=== PATIENT | female | born 1985 | race Caucasian/White ===

== ENCOUNTER 2017-07-12 15:26 | Emergency (ER) | payer OTHER ==
[~2017-07-12] VITALS: Ht 177.8 cm; Wt 78.9 kg
[2017-07-12] MEDS ORDERED: MORPHINE SULFATE INJ 10 MG/ML IV ONE (16:30)
[2017-07-12 20:28] VITALS: BP 122/70
== END 2017-07-12 16:55 | disposition home or self-care (01) ==
LOC: FSED 15:26
DX: R10.31 Right lower quadrant pain (principal); K57.32 Diverticulitis of large intestine without perforation or abscess without bleeding
CPT/HCPCS: 85025; 99282; J2270

== ENCOUNTER 2018-01-15 12:23 | Emergency (ER) | payer OTHER ==
[~2018-01-15] VITALS: Ht 177.8 cm; Wt 78.5 kg
[2018-01-15] MEDS ORDERED: SODIUM CHLORIDE 0.9% 1000ML 1,000 ML IV STA (12:56)
[2018-01-15] MEDS ORDERED: MORPHINE SULFATE INJ 4 MG/ML INJ IV STA (12:56)
[2018-01-15] MEDS ORDERED: ONDANSETRON HCL 4 MG ORAL DISINTEGRATING TAB PO ONE (13:00)
[2018-01-15 13:31] LABS: BASOPHILS # (AUTO) 0.1 (0.0-0.1); EOSINOPHILS # (AUTO) 0.1 (0.0-0.4); EOSINOPHILS % 0.8 % (0.0-6.0); HEMATOCRIT 45.2 % (34.2-44.1); HEMOGLOBIN 15.2 g/dL (12.0-16.0); LYMPHOCYTES # (AUTO) 4.1 (1.0-3.2); LYMPHOCYTES % 32.8 % (18.0-39.1); MEAN CORPUSCULAR HEMOGLOBIN 30.7 pg (28-32); MEAN CORPUSCULAR HGB CONC 33.6 g/dL (31-35); MEAN CORPUSCULAR VOLUME 91.3 fL (81-99); MONOCYTES # (AUTO) 1.2 (0.2-0.8); MONOCYTES % 9.2 % (4.4-11.3); NEUTROPHILS % 55.6 % (38.7-80.0); PLATELET COUNT 315 x10e3/uL (140-360); RED BLOOD COUNT 4.95 x10e6/uL (3.6-5.1); RED CELL DISTRIBUTION WIDTH 13.1 % (11.7-14.4)
[2018-01-15 13:34] LABS: PREGNANCY TEST, URINE NEGATIVE (NEGATIVE)
[2018-01-15 13:48] LABS: ALANINE AMINOTRANSFERASE 22 IU/L (0-55); ALBUMIN 4.2 g/dL (3.5-5.0); ALBUMIN/GLOBULIN RATIO 1.2 (0.8-2.0); ALKALINE PHOSPHATASE 82 IU/L (40-150); ANION GAP 13.4 mmol/L (8-16); BLOOD UREA NITROGEN 13 mg/dL (7-26); BUN/CREATININE RATIO 15 (6-25); CARBON DIOXIDE 29 mmol/L (22-29); CHLORIDE 102 mmol/L (98-107); CREATININE, SERUM 0.86 mg/dL (0.57-1.11); EST GLOMERULAR FILTRATION RATE > 60 ML/MIN (60-); GLUCOSE 80 mg/dL (74-118); POTASSIUM 3.4 mmol/L (3.5-5.1); SODIUM 141 mmol/L (136-145)
--- NOTE | 2018-01-15 14:34 | Diagnostic Imaging Report ---
PROCEDURE: CT ABDOMEN AND PELVIS WITHOUT CONTRAST TECHNIQUE: The abdomen and pelvis were scanned utilizing a multidetector helical scanner from the diaphragm to the lesser trochanter after the oral administration of water. No IV contrast was administered because of renal stone protocol. Coronal and sagittal multiplanar reformations were obtained. COMPARISON: None. INDICATIONS: KIDNEY STONES FINDINGS: ABSENCE OF INTRAVENOUS CONTRAST DECREASES SENSITIVITY FOR DETECTION OF FOCAL LESIONS AND VASCULAR PATHOLOGY. LOWER THORAX: Normal. HEPATOBILIARY: No focal hepatic lesion or intrahepatic biliary dilatation. The gallbladder is unremarkable. SPLEEN: No splenomegaly. PANCREAS: No focal masses or ductal dilatation. ADRENALS: No adrenal nodules. KIDNEYS/URETERS: Punctate nonobstructing left lower pole renal calculus (series 3 image 79). No additional renal, ureteral, or bladder calculi. No hydronephrosis. No perinephric inflammation. No gross solid or cystic renal mass lesion. PELVIC ORGANS/BLADDER: The urinary bladder is incompletely distended but otherwise unremarkable. The uterus is retroflexed and appears normal. No adnexal mass. PERITONEUM / RETROPERITONEUM: No ascites. No pneumoperitoneum. LYMPH NODES: No pelvic sidewall, retroperitoneal, or mesenteric lymphadenopathy. VESSELS: The limited evaluation without intravenous contrast. The abdominal aorta is non-aneurysmal. Retroaortic left renal vein. GI TRACT: The large bowel shows no evidence of distention or wall thickening. Gas and fecal material are noted throughout. The appendix is normal. There is no small bowel dilatation to suggest obstruction. BONES AND SOFT TISSUES: No focal soft tissue abnormalities. No osseous destructive lesions. Small bone island in the T12 vertebral body. Similar lesion in the left femoral head. IMPRESSION: Punctate nonobstructing left lower pole renal calculus. Dictated by: Tunde Wren M.D. on 01/15/2018 at 14:40 Electronically approved by: Tunde Wren M.D. on 01/15/2018 at 14:40
[2018-01-15 15:06] LABS: BILIRUBIN,URINE NEGATIVE (NEGATIVE); CLARITY,URINE CLEAR (CLEAR); COLOR,URINE YELLOW (YELLOW); KETONES,URINE NEGATIVE (NEGATIVE); LEUKOCYTE ESTERASE ,URINE NEGATIVE (NEGATIVE); NITRITE,URINE NEGATIVE (NEGATIVE); PROTEIN,URINE DIPSTICK NEGATIVE (NEGATIVE); URINE UROBILINOGEN 0.2 mg/dL (0.2 - 1)
[2018-01-15] MEDS ORDERED: CEFTRIAXONE SOD 1 GM VIAL IV NR (15:15)
[2018-01-15 15:17] LABS: BACTERIA,URINE MODERATE /HPF; EPITHELIAL CELLS,URINE MANY /LPF; MUCUS,URINE MODERATE (RARE)
== END 2018-01-15 16:58 | disposition home or self-care (01) ==
LOC: ER 12:23
DX: M54.9 Dorsalgia, unspecified (principal); M79.1 Myalgia; R11.0 Nausea; N18.9 Chronic kidney disease, unspecified; M32.9 Systemic lupus erythematosus, unspecified
CPT/HCPCS: 36415; 74176; 80053; 81001; 81025; 85025; 87086; 99284; J0696; J2270; J7030

== ENCOUNTER → 2018-04-23 | Outpatient (CLI) | payer OTHER ==
[~2018-04-23] MED LIST: IOPAMIDOL 370 MG/ML 200 ML INFUS..BTL INJ ONE; SODIUM CHLORIDE 0.9% 250ML 250 ML ONE
--- NOTE | 2018-04-23 15:08 | Diagnostic Imaging Report ---
EXAM: CT Abdomen and Pelvis WITHOUT and WITH contrast INDICATION: ^[id number] ^1400 ^GROSS HEMATURIA COMPARISON: None. TECHNIQUE: Abdomen and pelvis were scanned utilizing a multidetector helical scanner from the lung base to the pubic symphysis after administration of IV contrast. Coronal and sagittal reformations were obtained. Hematuria protocol was performed. Scan was performed pre- in supine position and nephrogenic/excretory phase with a 10 minute split bolus in prone position. IV CONTRAST: 150 mL of Isovue 370 ORAL CONTRAST: Water COMPLICATIONS: None RADIATION DOSE: Total DLP: 1172.4 mGy*cm Estimated effective dose: (DLP x 0.015 x size factor) mSv CTDIvol has been reviewed. It is below the limits set by the Radiation Protocol Committee (RPC). FINDINGS: LINES and TUBES: None. LOWER THORAX: Dependent atelectasis in the right middle lobe. Linear opacity in the right lower lobe, likely represents subsegmental atelectasis or scarring. HEPATOBILIARY: Normal hepatic size and contour. No focal hepatic lesions. No biliary ductal dilation. GALLBLADDER: No radio-opaque stones or sludge. No wall thickening. SPLEEN: No splenomegaly. PANCREAS: No focal masses or ductal dilatation. ADRENALS: No adrenal nodules KIDNEYS/URETERS: Kidneys: Normal appearance bilaterally. No hydronephrosis or perinephric stranding. Cyst: None. Mass: None. Stones: None. Upper collecting systems: No irregularities or filling defects. Ureters: Right proximal, right most distal, left proximal and left mid ureters are well opacified. No filling defects, strictures or extrinsic compressions. No hydroureter. No periureteral stranding. Bladder: No mass or filling defects. GI TRACT: No abnormal distention, wall thickening, or evidence of bowel obstruction. Appendix is normal. PELVIC ORGANS/BLADDER: No focal bladder lesions or wall thickening. Pelvic phleboliths. Uterus is unremarkable. No adnexal masses. LYMPH NODES: No lymphadenopathy. VESSELS: Unremarkable. PERITONEUM / RETROPERITONEUM: No free air or fluid. BONES: Unremarkable. SOFT TISSUES: Unremarkable. IMPRESSION: 1. No renal, ureteral or bladder calculi. No filling defects, strictures or extrinsic compressions in the opacified portions of the genitourinary tract. No bladder abnormalities. Signed by: Dr. Michael Anne M.D. on 04/23/2018 3:05 PM
== END ==
LOC: CT 12:45
PROVIDERS: ATTEND Urology
DX: R31.0 Gross hematuria (principal)
CPT/HCPCS: 74178; 81025; J7050; Q9967

== ENCOUNTER 2018-05-04 15:34 | Emergency (ER) | payer OTHER ==
[~2018-05-04] VITALS: Ht 177.8 cm; Wt 78.5 kg
--- OUTSIDE RECORDS SUMMARY | 2018-05-04 15:37 | XMS REPORT | Continuity of Care Document ---
Author Author [facility] Address Unknown Phone Unavailable Problems Problem Status Onset Date Classification Date Reported Comments Source CYNDEE positive Active Problem 02/01/2018 Heriberto Johnson Rheumatoid arthritis with positive rheumatoid factor Active Problem 02/01/2018 Heriberto Johnson Skin rash Active Problem 02/01/2018 Heirberto Johnson Medications Medication Details Route Status Patient Instructions Ordering Provider Order Date Source Hydroxychloroquine Sulfate 1 tablet with food or milk Orally Active 200 MG Orally bid Daryl 11/13/2017 Heriberto Johnson Hydrochlorothiazide 1 tablet in the morning Orally Active 25 MG Orally Once a day Daryl Heriberto Johnson Oxybutynin Chloride as directed Orally Active 15 MG Orally Daryl Heriberto Johnson Calcium 500 1 tablet Orally Active 500 MG Orally Once a day Daryl Heriberto Johnson Tamsulosin HCl 1 capsule Orally Active 0.4 MG Orally Once a day Daryl Heriberto Johnson Nortrel 1/35 (21) 1 tablet Orally Active 1-35 MG-MCG Orally Once a day Daryl Heriberto Johnson Potassium Citrate 1 tablet Orally Active 30 meq Orally twice a day Daryl Heriberto Johnson Tylenol/Codeine #3 1 tablet as needed Orally Active 300-30 MG Orally every 6 hrs Daryl Heriberto Johnson Phenazopyridine HCl 1 tablet after meals Orally Active 200 MG Orally Three times a day Daryl Heriberto Johnson Allergies, Adverse Reactions, Alerts Substance Category Reaction Severity Reaction type Status Date Reported Comments Source N.K.D.A. Adverse Reaction Info Not Available Adverse Reaction Active 11/13/2017 Heriberto Johnson Immunizations Immunization Date Given Site Status Last Updated Comments Source Results Order Name Results Value Reference Range Date Interpretation Comments Source Vital Signs Vital Sign Value Date Comments Source Weight 172.7 11/13/2017 Heriberto Johnson Height 69.5 11/13/2017 Heriberto Johnson Temperature Oral (F) 98.8 F 11/13/2017 Heriberto Johnson Heart Rate 80 11/13/2017 Heriberto Johnson Diastolic (mm Hg) 70 11/13/2017 Heriberto Johnson Systolic (mm Hg) 114 11/13/2017 Heriberto Johnson Weight 173.5 10/30/2017 Heriberto Johnson Height 69.5 10/30/2017 Heriberto Johnson Temperature Oral (F) 98.9 F 10/30/2017 Heriberto Johnson Heart Rate 74 10/30/2017 Heriberto Johnson Diastolic (mm Hg) 76 10/30/2017 Heriberto Johnson Systolic (mm Hg) 122 10/30/2017 Heriberto Johnson Encounters Location Location Details Encounter Type Encounter Number Reason For Visit Attending Provider ADM Date DC Date Status Source Procedures Procedure Code Date Perfomer Comments Source
--- OUTSIDE RECORDS SUMMARY | 2018-05-04 15:37 | XMS REPORT ---
Author Author [facility] Address Unknown Phone Unavailable Care Team Providers Care Maintenance Supervisor Name Role Phone GATITO ROTHMAN Unavailable Unavailable Isidro FUENTES Unavailable Unavailable Payers Payer Name Policy Type Policy Number Effective Date Expiration Date Problems This patient has no known problems. Allergies, Adverse Reactions, Alerts Allergy Name Allergy Type Status Severity Reaction(s) Onset Date Inactive Date Treating Clinician Comments No Known Allergies DA Active U 2018-04-29 00:00:00 No Known Allergies DA Active U 2017-10-13 00:00:00 Medications This patient has no known medications. Results Test Description Test Time Test Comments Text Results Atomic Results Result Comments CT ABDOMEN/PELVIS WOW 2018-04-23 14:58:00 [place] [address] Patient Name: ASUNCION ROSAS MR #: [id number] : 1985 Age/Sex: 32/F Req #: [id number] Adm Physician: Ordered by: GATITO ROTHMAN MD Report #: [id number] Location: CT Room/Bed: Procedure: [id number] CT/CT ABDOMEN/PELVIS WOW Exam Date: 04/23/18 Exam Time: 1400 REPORT STATUS: Signed EXAM: CT Abdomen and Pelvis WITHOUT and WITH contrast INDICATION: [id number] GROSS HEMATURIA COMPARISON: None. TECHNIQUE: Abdomen and pelvis were scanned utilizing a multidetector helical scanner from the lung base to the pubic symphysis after administration of IV contrast. Coronal and sagittal reformations were obtained. Hematuria protocol was performed. Scan was performed pre- in supine position and nephrogenic/excretory phase with a 10 minute split bolus in prone position. IV CONTRAST: 150 mL of Isovue 370 ORAL CONTRAST: Water COMPLICATIONS: None RADIATION DOSE: Total DLP: 1172.4 mGy*cm Estimated effective dose: (DLP x 0.015 x size factor) mSv CTDIvol has been reviewed. It is below the limits set by the Radiation Protocol Committee (RPC). FINDINGS: LINES and TUBES: None. LOWER THORAX: Dependent atelectasis in the right middle lobe. Linear opacity in the right lower lobe, likely represents subsegmental atelectasis or scarring. HEPATOBILIARY: Normal hepatic size and contour. No focal hepatic lesions. No biliary ductal dilation. GALLBLADDER: No radio-opaque stones or sludge. No wall thickening. SPLEEN: No splenomegaly. PANCREAS: No focal masses or ductal dilatation. ADRENALS: No adrenal nodules KIDNEYS/URETERS: Kidneys: Normal appearance bilaterally. No hydronephrosis or perinephric stranding. Cyst: None. Mass: None. Stones: None. Upper collecting systems: No irregularities or filling defects. Ureters: Right proximal, right most distal, left proximal and left mid ureters are well opacified. No filling defects, strictures or extrinsic compressions. No hydroureter. No periureteral stranding. Bladder: No mass or filling defects. GI TRACT: No abnormal distention, wall thickening, or evidence of bowel obstruction. Appendix is normal. PELVIC ORGANS/BLADDER: No focal bladder lesions or wall thickening. Pelvic phleboliths. Uterus is unremarkable. No adnexal masses. LYMPH NODES: No lymphadenopathy. VESSELS: Unremarkable. PERITONEUM / RETROPERITONEUM: No free air or fluid. BONES: Unremarkable. SOFT TISSUES: Unremarkable. IMPRESSION: 1. No renal, ureteral or bladder calculi. No filling defects, strictures or extrinsic compressions in the opacified portion s of the genitourinary tract. No bladder abnormalities. Signed by: Dr. Janie Anne M.D. on 04/23/2018 3:05 PM Dictated By: JANIE ANNE MD 04 Transcribed By: PATRICIA on 04/23/181504 COPY TO: GATITO ROTHMAN MD CT ABDOMEN/PELVIS WO 2018-01-15 14:40:00 [place] [address] Patient Name: ASUNCION ROSAS MR #: [id number] : 1985 Age/Sex: 32/F Req #: [id number] Adm Physician: Ordered by: LUIS DICKSON NP Report #: [id number] Location: ER Room/Bed: Procedure: [id number] CT/CT ABDOMEN/PELVIS WO Exam Date: Exam Time: REPORT STATUS: Signed PROCEDURE: CT ABDOMEN AND PELVIS WITHOUT CONTRAST TECHNIQUE: The abdomen and pelvis were scanned utilizing a multidetector helical scanner from the diaphragm to the lesser trochanter after the oral administration of water. No IV contrast was administered because of renal stone protocol. Coronal and sagittal multiplanar reformations were obtained. COMPARISON: None. INDICATIONS: KIDNEY STONES FINDINGS: ABSENCE OF INTRAVENOUS CONTRAST DECREASES SENSITIVITY FOR DETECTION OF FOCAL LESIONS AND VASCULAR PATHOLOGY. LOWER THORAX: Normal. HEPATOBILIARY: No focal hepatic lesion or intrahepatic biliary dilatation. The gallbladder is unremarkable. SPLEEN: No splenomegaly. PANCREAS: No focal masses or ductal dilatation. ADRENALS: No adrenal nodules. KIDNEYS/URETERS: Punctate nonobstructing left lower pole renal calculus (series 3 image 79). No additional renal, ureteral, or bladder calculi. No hydronephrosis. No perinephric inflammation. No gross solid or cystic renal mass lesion. PELVIC ORGANS/BLADDER: The urinary bladder is incompletely distended but otherwise unremarkable. The uterus is retroflexed and appears normal. No adnexal mass. PERITONEUM / RETROPERITONEUM: No ascites. No pneumoperitoneum. LYMPH NODES: No pelvic sidewall, retroperitoneal, or mesenteric lymphadenopathy. VESSELS: The limited evaluation without intravenous contrast. The abdominal aorta is non-aneurysmal. Retroaortic left renal vein. GI TRACT: The large bowel shows no evidence of distention or wall thickening. Gas and fecal material are noted throughout. The appendix is normal. There is no small bowel dilatation to suggest obstruction. BONES AND SOFT TISSUES: No focal soft tissue abnormalities. No osseous destructive lesions. Small bone island in the T12 vertebral body. Similar lesion in the left femoral head. IMPRESSION: Punctate nonobstructing left lower pole renal calculus. Dictated by: Sofia Amador M.D. on 01/15/2018 at 14:40 Electronically approved by: Sofia Amador M.D. on 01/15/2018 at 14:40 Dictated By: SOFIA AMADOR MD 1440 Transcribed By: REMY on 01/15/18 1440 COPY TO: LUIS DICKSON NP
--- OUTSIDE RECORDS SUMMARY | 2018-05-04 15:37 | XMS REPORT ---
Author Author Saad Johnson Organization [employer] Address Unknown Phone Unavailable Care Team Providers Care Clay Press Operator Name Role Phone Saad Johnson CP Unavailable Allergies No Known Allergies Problems Problem Type Condition Code Onset Dates Condition Status Problem Rheumatoid arthritis with positive rheumatoid factor M05.9 Active Problem CYNDEE positive R76.8 Active Problem Skin rash R21 Active Medications No Known Medications Results No Known Results Summary Purpose [employer] Submission
[2018-05-04] MEDS ORDERED: MORPHINE SULFATE INJ 4 MG/ML INJ IV PRN (16:30)
[2018-05-04] MEDS ORDERED: ONDANSETRON HCL INJ 2 MG/ML VIAL IV ONE (17:00)
[2018-05-04] MEDS ORDERED: SODIUM CHLORIDE 0.9% 1000ML 1,000 ML IV SCH (17:15)
--- NOTE | 2018-05-04 17:49 | Diagnostic Imaging Report ---
EXAM: Right Upper Quadrant Ultrasound INDICATION: Right upper quadrant pain COMPARISON: CT abdomen and pelvis 04/23/2018 TECHNIQUE: Transverse and longitudinal images of the right upper abdomen were obtained. FINDINGS: Liver: Size: 17.1 cm in the right midclavicular line, enlarged Appearance: Increased echogenicity, smooth contour Mass: No focal masses Gallbladder: Stones/Sludge: None Wall: 0.2 cm Appearance: No wall thickening, pericholecystic fluid or hydrops. Sonographic Broussard's Sign: Negative Bile Ducts: Intrahepatic Ducts: No dilatation Extrahepatic Ducts: Common bile duct measures 0.3 cm, no dilatation Pancreas: Obscured by overlying bowel gas Kidneys: Length: Right 10.8 cm Echogenicity: Normal Collecting System: No hydronephrosis Stone: None Cyst/Mass: None Vessels: Aorta: Visualized portions are normal Inferior Vena Cava: Visualized portions are normal Main Portal Vein: 0.9 cm, normal size with hepatopetal flow. Free Fluid: No ascites or pleural effusion IMPRESSION: 1. No sonographic evidence of cholelithiasis or cholecystitis. 2. Hepatomegaly with diffuse fatty infiltration.. Signed by: Dr. Michael Anne M.D. on 05/04/2018 5:46 PM
== END 2018-05-04 18:30 | disposition home or self-care (01) ==
LOC: FSED 15:34
DX: N10 Acute pyelonephritis (principal); R11.2 Nausea with vomiting, unspecified; R19.7 Diarrhea, unspecified; M79.7 Fibromyalgia; M32.9 Systemic lupus erythematosus, unspecified; K76.0 Fatty (change of) liver, not elsewhere classified; Z87.442 Personal history of urinary calculi
CPT/HCPCS: 76705; 80048; 80076; 81003; 81025; 85025; 87086; 99284; J2405

== ENCOUNTER → 2018-10-29 | Outpatient (CLI) | payer OTHER ==
--- NOTE | 2018-10-29 17:31 | Diagnostic Imaging Report ---
Abdomen, 2 views History: Stones. Comparison: CT of the abdomen and pelvis dated 04/23/2018. Findings: The intestinal gas pattern is nonobstructive. Fecal material in the right colon obscures the right kidney and renders the evaluation for stones overlying the right kidney limited. There no masses or abnormal calcifications. The osseous structures are intact. IMPRESSION: No acute abdominal abnormality. Signed by: Dr. Paolo Callahan DO on 10/29/2018 5:27 PM
== END ==
LOC: RAD 14:28
PROVIDERS: ATTEND Urology
DX: N20.0 Calculus of kidney (principal)
CPT/HCPCS: 74018

== ENCOUNTER 2019-01-07 19:37 | Inpatient (IN) | payer OTHER ==
[~2019-01-07] VITALS: Ht 177.8 cm; Wt 93.0 kg
--- OUTSIDE RECORDS SUMMARY | 2019-01-07 19:39 | XMS REPORT | Summary of Care ---
Author Author Bell Jacob M.A. Unknown Address [facility] Phone Unavailable Care Team Providers Care Admissions Evaluator Name Role Phone MARY BRANDT M.D. Unavailable Unavailable GERBER HENSLEY MD Unavailable Unavailable RIKKI SMALL TNMARY Unavailable Unavailable Unavailable Unavailable Functional Status Name Dates Details Functional status health issues are not documented Status: Name Dates Details Cognitive status health issues are not documented Status: Problems Name Dates Details Patellofemoral pain syndrome of both knees (719.46, M22.2X1) Status: Active Cervical mass (622.8, N88.8) Status: Active Deep vein thrombosis (DVT) of other vein of right lower extremity (453.40, I82.491) Status: Active Medications Name Dates Details Plaquenil TABS Active Methotrexate TABS * Refills: 0 Active methIMAzole TABS * Refills: 0 Active Potassium Citrate ER TBCR * Refills: 0 Active Allergies and Adverse Reactions Name Dates Details No Known Drug Allergies (Allergy) Status: Active Procedures Procedure Dates Details MRI Spine cervical w/wo contrast 44696 Date: 11-Dec-2018 Immunization Name Dates Details Immunizations not documented Social History Name Dates Details Unknown if ever smoked Vital Signs Date Test Result Details 0-Qbm-685105:14 Height 70 in Status: Weight 190 lb Status: Body Mass Index Calculated 27.26 kg/m2 Status: Body Surface Area Calculated 2.04 m2 Status: Results Date Description Value Details 4-Sub-573975:18 [U] XR KNEE 1 OR 2 VWS BILATERAL XR KNEE 1 OR 2 VWS BILATERAL Images acquired, not reported on this accession number. Plan of Care Name Dates Details Planned Observations Planned Goals not documented Planned Encounters Physical Therapy Referral Ortho Interventions Provided Labs/Procedures/Imaging* MRI Spine cervical w/wo contrast 65633; To Be Done: 11 Dec 2018 * [U] XR KNEE 1 OR 2 VWS BILATERAL; Done: 11 Dec 2018 Plan* Start conservative treatment for her bilateral patellofemoral pain. Core strengthening and flexibility stretching. Oral anti-inflammatories. Activity modifications. Discussed possibility of the need for MRI and surgical intervention with persistent symptoms. * MRI with and without contrast of the cervical spine to evaluate the mass on the dorsum of the neck. Of note she has a history of kidney disease thyroid disease and systemic lupus. Instructions Name Dates Details Instructions not documented Encounters Appointment; MARY BRANDT M.D. Encounter Diagnosis: Problem not documented On: 11-Dec-2018 13:00
--- OUTSIDE RECORDS SUMMARY | 2019-01-07 19:39 | XMS REPORT ---
Author [facility] Address Unknown Phone Unavailable Care Team Providers Care Gaming Table Operator Name Role Phone GATITO ROTHMAN Unavailable Unavailable Dipika MARTÍNEZ Unavailable Unavailable Isidro FUENTES Unavailable Unavailable Payers [...] Comments Text Results Atomic Results Result Comments [address] ([facility]) 2018-10-29 17:22:00 [place] [address] Patient Name: ASUNCION ROSAS MR #: [id number] : 1985 Age/Sex: 33/F Req #: [id number] [facility] Physician: Ordered by: GATITO ROTHMAN MD Report #: [id number] Location: [facility] Room/Bed: Procedure: [id number] DX/ABDOMEN-1VIEW (KUB) Exam Date: 10/29/18 Exam Time: 1450 REPORT STATUS: Signed Abdomen, 2 views History: Stones. Comparison: CT of the abdomen and pelvis dated 04/23/2018. Findings: The intestinal gas pattern is nonobstructive. Fecal material in the right colon obscures the right kidney and renders the evaluation for stones overlying the right kidney limited. There no masses or abnormal calcifications. The osseous structures are intact. IMPRESSION: No acute abdominal abnormality. Signed by: Dr. Servando Callahan DO on 10/29/2018 5:27 PM Dictated By: SERVANDO CALLAHAN DO 26 Transcribed By: PATRICIA on 10/29/181726 COPY TO: GATITO ROTHMAN MD GALL BLADDER-HOPD 2018-05-04 17:44:00 [place] [address] Patient Name: ASUNCION ROSAS MR #: [id number] : 1985 Age/Sex: 32/F Req #: [id number] Adm Physician: Ordered by: MELISSA MARTÍNEZ MD Report #: [id number] Location: [facility] Room/Bed: Procedure: [id number] [facility]/ GALL BLADDER-HOPD Exam Date: 05/04/18 Exam Time: 1736 REPORT STATUS: Signed EXAM: Right Upper Quadrant Ultrasound INDICATION: Right upper quadrant pain COMPARISON: CT abdomen and pelvis 04/23/2018 TECHNIQUE: Transverse and longitudinal images of the right upper abdomen were obtained. FINDINGS: Liver: Size: 17.1 cm in the right midclavicular line, enlarged Appearance: Increased echogenicity, smooth contour Mass: No focal masses Gallbladder: Stones/Sludge: None Wall: 0.2 cm Appearance: No wall thickening, pericholecystic fluid or hydrops. Sonographic Broussard's Sign: Negative Bile Ducts: Intrahepatic Ducts: No dilatation Extrahepatic Ducts: Common bile duct measures 0.3 cm, no dilatation Pancreas: Obscured by overlying bowel gas Kidneys: Length: Right 10.8 cm Echogenicity: Normal Collecting System: No hydronephrosis Stone: None Cyst/Mass: None Vessels: Aorta: Visualized portions are normal Inferior Vena Cava: Visualized portions are normal Main Portal Vein: 0.9 cm, normal size with hepatopetal flow. Free Fluid: No ascites or pleural effusion IMPRESSION: 1. No sonographic evidence of cholelithiasis or cholecystitis. 2. Hepatomegaly with diffuse fatty infiltration.. Signed by: Dr. Janie Anne M.D. on 05/04/2018 5:46 PM Dictated By: JANIE ANNE MD 45 Transcribed By: PATRICIA on 05/04/181745 COPY TO: MELISSA MARTÍNEZ MD CT ABDOMEN/PELVIS WOW 2018-04-23 14:58:00 [place] [address] Patient Name: ASUNCION ROSAS MR #: [id number] : 1985 Age/Sex: 32/F Req #: [id number] Adm Physician: Ordered by: GATITO ROTHMAN MD Report #: [id number] Location: CT Room/Bed: Procedure: [id number] CT/CT ABDOMEN/PELVIS WOW Exam Date: 04/23/18 Exam Time: 1400 REPORT STATUS: Signed EXAM: CT Abdomen and Pelvis WITHOUT and WITH contrast INDICATION: [id number] GROSS HEMATURIA COMPARISON: None. TECHNIQUE: Abdomen and [...] 3:05 PM Dictated By: JANIE ANNE MD 1505 Transcribed By: PATRICIA on 04/23/18 1503 COPY TO: GATITO ROTHMAN MD CT ABDOMEN/PELVIS WO 2018-01-15 14:40:00 [place] [address] Patient Name: ASUNCION ROSAS MR #: [id number] : 1985 Age/Sex: 32/F Req #: [id number] Adm Physician: Ordered by: LUIS DICKSON FIBERGLASSER Report #: [id number] Location: ER Room/Bed: Procedure: [id number] CT/CT ABDOMEN/PELVIS WO Exam Date: Exam Time: [...]
--- OUTSIDE RECORDS SUMMARY | 2019-01-07 19:39 | XMS REPORT | Continuity of Care Document ---
Author Author [employer] Address Unknown Phone Unavailable Care Team Providers Care Institutional Commodity Analyst Name Role Phone [email or web address] Unavailable Unavailable Problems Problem Status Onset Date Classification Date Reported Comments Source CYNDEE positive Active Problem 02/01/2018 Heriberto Johnson Rheumatoid arthritis with positive rheumatoid factor Active Problem 02/01/2018 Heriberto Johnson Skin rash Active Problem 02/01/2018 Heriberto Johnson Medications Medication Details Route Status Patient [...] Active 30 meq Orally twice a day [facility] Heriberto Johnson Tylenol/Codeine #3 1 tablet as [...] Adverse Reaction Active 11/13/2017 Heriberto Johnson Immunizations No Data Provided for This Section Results No Data Provided for This Section Pathology Reports No Data Provided for This Section Diagnostic Reports No Data Provided for This Section Consultation Notes No Data Provided for This Section Discharge Summaries No Data Provided for This Section History and Physicals No Data Provided for This Section Vital Signs Vital Sign Value Date Comments [...] (mm Hg) 122 10/30/2017 Heriberto Johnson Encounters No Data Provided for This Section Procedures No Data Provided for This Section Assessment and Plan No Data Provided for This Section Plan of Care No Data Provided for This Section Social History No Data Provided for This Section Family History No Data Provided for This Section Advance Directives No Data Provided for This Section Functional Status No Data Provided for This Section
[2019-01-07] MEDS ORDERED: SODIUM CHLORIDE 0.9% 1000ML 1,000 ML IV STA (19:48)
[2019-01-07 20:00] VITALS: BP 136/85
[2019-01-07] MEDS ORDERED: METHYLPREDNISOLONE SOD SUCC 125 MG/2ML VIAL IV ONE (20:00)
[2019-01-07] MEDS ORDERED: FAMOTIDINE 20 MG/2 ML VIAL IV NR (20:00)
[2019-01-07] MEDS ORDERED: ALBUTEROL/IPRATROPIUM 3 ML NEB NEB ONE (20:00)
[2019-01-07] MEDS ORDERED: KETOROLAC TROMETHAMINE 30 MG/ML VIAL IV NR (20:00)
[2019-01-07] MEDS ORDERED: DIPHENHYDRAMINE HCL INJ 50 MG/ML VIAL IV NR (20:00)
[2019-01-07] MEDS ORDERED: ONDANSETRON HCL INJ 2MG/ML 2ML 2 MG/ML VIAL IV NR (20:00)
--- NOTE | 2019-01-07 20:40 | Diagnostic Imaging Report ---
Frontal and lateral views of the chest - 3 images HISTORY: Shortness of breath, fever COMPARISON: None available. DISCUSSION: Lungs: Subtle patchy lingular interstitial and airspace opacity, partially obscures the left heart border. Pleura: No pleural effusion or pneumothorax. Heart and mediastinum: The cardiomediastinal silhouette appears unremarkable. Bones and soft tissues: Appear unremarkable. IMPRESSION: 1. Lingular pneumonia. 2. Recommend short term follow up routine PA and lateral chest radiographs, in 6 to 8 weeks, to evaluate for resolution. Signed by: Dr. Aaron Jimenez D.O., M.M.M. on 01/07/2019 8:37 PM
[2019-01-07] MEDS ORDERED: CEFEPIME HCL 2 GM VIAL IV SCH (21:00)
[2019-01-07] MEDS: CEFEPIME 2 GM/NS 0.9% 100 ML 100 ML IV SCH (21:46)
[2019-01-07 22:00] LABS: BILIRUBIN,URINE NEGATIVE (NEGATIVE); CLARITY,URINE SL CLOUDY (CLEAR); COLOR,URINE YELLOW (YELLOW); KETONES,URINE NEGATIVE (NEGATIVE); LEUKOCYTE ESTERASE ,URINE NEGATIVE (NEGATIVE); NITRITE,URINE NEGATIVE (NEGATIVE); PROTEIN,URINE DIPSTICK NEGATIVE (NEGATIVE); URINE UROBILINOGEN 0.2 mg/dL (0.2 - 1)
[2019-01-07 22:06] LABS: BASOPHILS % 0.3 % (0.0-1.0); EOSINOPHILS % 0.2 % (0.0-6.0); HEMATOCRIT 41.7 % (34.2-44.1); HEMOGLOBIN 13.6 g/dL (12.0-16.0); LYMPHOCYTES # (AUTO) 1.1 (1.0-3.2); LYMPHOCYTES % 11.3 % (18.0-39.1); MEAN CORPUSCULAR HEMOGLOBIN 32.3 pg (28-32); MEAN CORPUSCULAR HGB CONC 32.6 g/dL (31-35); MONOCYTES # (AUTO) 0.7 (0.2-0.8); MONOCYTES % 6.7 % (4.4-11.3); NEUTROPHILS # (AUTO) 7.6 (2.1-6.9); NEUTROPHILS % 78.2 % (38.7-80.0); PLATELET COUNT 248 x10e3/uL (140-360); RED BLOOD COUNT 4.21 x10e6/uL (3.6-5.1); RED CELL DISTRIBUTION WIDTH 15.6 % (11.7-14.4)
[2019-01-07 22:17] LABS: BACTERIA,URINE RARE /HPF; EPITHELIAL CELLS,URINE MODERATE /LPF
[2019-01-07 22:21] LABS: ANION GAP 15.7 mmol/L (8-16); BLOOD UREA NITROGEN 30 mg/dL (7-26); CARBON DIOXIDE 28 mmol/L (22-29); CHLORIDE 101 mmol/L (98-107); POTASSIUM 3.7 mmol/L (3.5-5.1); SODIUM 141 mmol/L (136-145)
[2019-01-07 22:22] LABS: ALANINE AMINOTRANSFERASE 62 IU/L (0-55); ALBUMIN 3.8 g/dL (3.5-5.0); ALBUMIN/GLOBULIN RATIO 1.4 (0.8-2.0); ALKALINE PHOSPHATASE 77 IU/L (40-150); BUN/CREATININE RATIO 38 (6-25); EST GLOMERULAR FILTRATION RATE > 60 ML/MIN (60-); GLUCOSE 104 mg/dL (74-118)
[2019-01-07] MEDS: AZITHROMYCIN 500MG/NS 250 ML 250 ML IV SCH (22:48)
[2019-01-07] MEDS ORDERED: DIPHENHYDRAMINE HCL INJ 50 MG/ML VIAL IV PRN (23:00)
[2019-01-07] MEDS ORDERED: ACETAMINOPHEN 325 MG TAB PO PRN (23:00)
[2019-01-07] MEDS ORDERED: IBUPROFEN 200 MG TAB PO PRN (23:00)
[2019-01-07] MEDS ORDERED: ZOLPIDEM TARTRATE 5 MG TAB PO PRN (23:00)
--- NOTE | 2019-01-07 23:15 | NUR ---
REPORT GIVEN TO IKE DICKERSON.
[2019-01-08] VITALS (9 sets, daily range): BP systolic 102–129; BP diastolic 56–71
[2019-01-08] MEDS ORDERED: METHYLPREDNISOLONE SOD SUCC 125 MG/2ML VIAL IV SCH
[2019-01-08 00:06] LABS: THYROID STIMULATING HORMONE 1.336 uIU/mL (0.350-4.940)
--- OUTSIDE RECORDS SUMMARY | 2019-01-08 00:08 | XMS REPORT | Continuity of Care Document ---
Author Author Philly Runway Thief Address Unknown Phone Unavailable Care Team Providers Care Wire Walker Name Role Phone [employer] Information Freeze Tag Unavailable Unavailable Problems Problem Status Onset Date [...] Active 30 meq Orally twice a day [facility] Heriberto Johnson Tylenol/Codeine #3 1 tablet as [...]
[2019-01-08] MEDS: MORPHINE SULFATE INJ 4 MG/ML INJ 1ML IV PRN ×4 (00:25→21:08)
[2019-01-08] MEDS: LACTATED RINGER'S 1,000 ML IV SCH ×2 (00:41→12:56)
[2019-01-08] MEDS: PROMETHAZINE 25MG/ NS 50ML (IV) IV PRN (00:41)
[2019-01-08] MEDS ORDERED: FOLIC ACID1 MG PO (03:31)
[2019-01-08] MEDS ORDERED: METHOTREXATE2.5 MG PO (03:31)
[2019-01-08] MEDS ORDERED: DOXAZOSIN MESYLA2 MG PO (03:31)
[2019-01-08] MEDS ORDERED: PLAQUENIL200 MG PO (03:31)
[2019-01-08] MEDS: METHYLPREDNISOLONE SOD SUCC 125 MG/2ML VIAL IV SCH ×4 (04:47→21:08)
[2019-01-08] MEDS: HYDROCODONE/APAP 7.5MG-325MG 1 EA TAB PO PRN (04:50)
[2019-01-08] MEDS: ALBUTEROL/IPRATROPIUM 3 ML NEB NEB SCH ×3 (08:20→20:05)
[2019-01-08] MEDS: CEFEPIME 2 GM/NS 0.9% 100 ML 100 ML IV SCH ×2 (09:13→20:32)
[2019-01-08] MEDS: FAMOTIDINE 20 MG/2 ML VIAL IV SCH ×2 (09:16→16:58)
[2019-01-08] MEDS: ENOXAPARIN SOD INJ 40 MG/0.4 ML SYR SC SCH (16:58)
--- NOTE | 2019-01-08 17:15 | Diagnostic Imaging Report ---
EXAM: CT Chest WITH intravenous contrast 01/08/2019 3:50 PM INDICATION: Edema COMPARISON: Chest radiograph 01/07/2019 TECHNIQUE: Chest was scanned utilizing a multidetector helical scanner from the lung apex through the level of the adrenal glands after administration of IV contrast. Coronal and sagittal reformations were obtained. Routine protocol was performed. IV CONTRAST: 100mL Isovue 370 RADIATION DOSE: Total DLP: 844.4 mGy*cm. Dose modulation, iterative reconstruction, and/or weight based adjustment of the mA/kV was utilized to reduce the radiation dose to as low as reasonably achievable. COMPLICATIONS: None FINDINGS: LINES/ TUBES: None. LUNGS AND AIRWAYS: The central airways are patent. There is biapical subpleural blebbing, the most prominent of which at the lateral right apex measures up to 3.8 cm. There is bibasilar dependent subsegmental atelectasis. No focal consolidation. No substantial pulmonary edema. No suspicious pulmonary nodules. PLEURA: No pleural effusion or pneumothorax. HEART AND MEDIASTINUM: The partially visualized thyroid gland appears unremarkable. No supraclavicular, mediastinal, hilar, axillary, subpectoral, or internal mammary lymphadenopathy. The heart is not enlarged. No pericardial effusion. This study is not tailored for evaluation of pulmonary embolism, however there are no filling defects to the level of the segmental pulmonary arteries. The subsegmental pulmonary arteries are not well opacified. UPPER ABDOMEN: Limited contrast-enhanced images of the upper abdomen demonstrate hepatomegaly and no focal abnormality in the partially visualized spleen, pancreas, adrenals, and upper kidneys. BONES: No acute osseous injury. No suspicious lytic blastic lesions. SOFT TISSUES: Unremarkable. IMPRESSION: No focal pneumonia. Silhouetting of the left heart border on the prior chest radiograph is due to prominent pericardial fat pad. Prominent biapical subpleural blebbing. Hepatomegaly. Signed by: Matthew Travis MD on 01/08/2019 5:12 PM
[2019-01-08] MEDS ORDERED: METHIMAZOLE5 MG PO (18:02)
[2019-01-08] MEDS ORDERED: BUMETANIDE 1 MG TAB PO SCH (18:15)
[2019-01-08] MEDS ORDERED: IOPAMIDOL 370 MG/ML 200 ML INFUS..BTL INJ ONE (19:18)
[2019-01-08] MEDS ORDERED: SODIUM CHLORIDE 0.9% 50ML 50 ML ONE (19:18)
--- NOTE | 2019-01-08 19:50 | NUR ---
patient received awake, alert, lying quietly in bed. vss. no c/o pain noted. patient instructed to call for assistance when needed.
[2019-01-08] MEDS: AZITHROMYCIN 500MG/NS 250 ML 250 ML IV SCH (20:32)
[2019-01-08] MEDS: BUMETANIDE 1 MG TAB PO SCH (20:32)
[2019-01-08] MEDS: DOXAZOSIN MESYLATE 2 MG TAB PO SCH (20:33)
[2019-01-08] MEDS: HYDROXYCHLOROQUINE SULFATE 200 MG TAB PO SCH (20:33)
[2019-01-09] VITALS (8 sets, daily range): BP systolic 99–119; BP diastolic 46–59
--- NOTE | 2019-01-09 00:20 | History and Physical ---
CHIEF COMPLAINT: Anasarca. HISTORY OF PRESENT ILLNESS: This is a 33-year-old female with past medical history of connective tissue disorder, currently on immunosuppression followed up with the discharge coordinator in [place], [place]. She now presents to the ED with complaints of underlying shortness of breath and reports difficulty breathing. The patient reports also that she has had significant amount of swelling throughout her entire body of note especially in the lower extremities. She states that she noticed this about a month ago that her swelling was beginning to be evident, but she reports over the last several weeks, she has gained about 15 pounds. She also reports that her face has been significantly more swollen than usual. She reports that she would talk to her discharge coordinator that she would give her some Solu-Medrol, but it would go all the away in terms of her overall symptoms as well as the swelling. She now reports that the swelling has not improved and wanted further evaluation and management. She also has a history of hyperthyroidism for which she follows up with an specimen collector in [facility], Dr. Menchaca. The patient denies any chest pain, palpitation, nausea or vomiting. Reports also having a buffalo hump, this is likely secondary to her underlying steroid chronic usage. She denies any fever at home, cough, congestion, or any recent infection. The patient is seen and evaluated at bedside on the medical floor. She is currently doing well with no other issues. I reviewed the entire results with the patient and the at bedside. I went over the labs, imaging studies and the consultants that I am going to have to have her further evaluated. REVIEW OF SYSTEMS: Pertinent positive: Shortness of breath, difficulty breathing, anasarca, lower extremity edema. Pertinent negatives: Denies any chest pain, palpitation, nausea, vomiting, diarrhea, dysuria, hematuria, frequency, urgency, lightheadedness, dizziness, abdominal pain, headaches, shortness of breath, cough, congestion, fever, or any other complaints. The rest of the 14-point review of systems have been reviewed with the patient and are negative. ALLERGIES: NO KNOWN DRUG ALLERGIES. HOME MEDICATIONS: She is on doxazosin 2 mg at bedtime, folic acid 1 mg b.i.d., Plaquenil 200 mg p.o. b.i.d., methotrexate 15 mg p.o. q. weekly. PAST MEDICAL HISTORY: She has a history of connective tissue disorder under the supervision on discharge coordinator, hypertension, and hyperthyroidism. PAST SURGICAL HISTORY: Reports none. FAMILY HISTORY: Hypertension and diabetes. SOCIAL HISTORY: No drugs. No alcohol. Does not smoke. Good social support. PHYSICAL EXAMINATION: VITAL SIGNS: Temperature is 97.7, pulse 81, respiratory rate 21, blood pressure 113/57 and pulse ox 94% on room air. GENERAL: Not in acute distress, alert and oriented x3, cooperative on examination. HEENT: Head is normocephalic, atraumatic. Eyes; pupils are equal, round, and reactive to light bilaterally. Extraocular movements are intact bilaterally NECK: Supple. Good range of motion. Throat, no evidence of erythema or exudates in the posterior. Has poor dentition . PULMONARY: Clear to auscultation bilaterally. No wheezing, rales, or rhonchi. No crackles appreciated. CARDIOVASCULAR: Positive S1 and S2. No murmurs, rubs, or gallops appreciated. ABDOMEN: Soft, nondistended, and nontender to palpation. Bowel sounds present. MUSCULOSKELETAL: Strength is 5/5 throughout. No evidence of muscle deficits on examination. No weakness appreciated. NEUROLOGIC: Cranial nerves II through XII grossly intact. No evidence of any neurological deficits on exam. SKIN: Intact. Warm to touch. Good cap refill. PSYCHIATRIC: Normal affect and mood. EXTREMITIES: 1+ pedal edema, bilateral lower extremity and the ankles. LAB FINDINGS: Show white count 9.6, hemoglobin 13, hematocrit is 41, and platelets of 248. Chemistry; sodium 141, potassium 3.7, chloride 101, bicarbonate 28, anion gap of 15, BUN is 30, creatinine is 0.8, glucose 104. Lactic acid is 13, but normal, at this hospital calcium 9. LFTs within normal range. Total protein 6.5, albumin 3.8. TSH is 1.3, free T4 is 7.6, which is normal. Beta-hCG urine negative. Urinalysis is negative. Serology, monospot negative. Group A and group B strep screen are negative. Microbiology, blood cultures were negative. Blood cultures, no growth today. IMAGING STUDIES: Chest x-ray shows a lingular pneumonia. CT of the chest shows no focal pneumonia. Silhouetting of the left heart border with prior chest radiograph is prominent to pericardial fat pad, prominent biapical subpleural flooding, hepatomegaly seen. CT of the soft tissue neck is pending. IMPRESSION: 1. History of mixed connective tissue disorder, on immunosuppression. 2. Lower extremity edema. 3. History of hyperthyroidism. 4. Difficulty breathing, but stable on examination. 5. Concerns for underlying anasarca. PLAN: At this time, resume same immunosuppression, Plaquenil and folic acid. Methotrexate is q. weekly. In terms of her swallow, we are going to get a urine protein to creatinine ratio, microalbumin to creatinine ratio. I am going to get a 2D echo. Her albumin is 3.8, so less likely this patient will have any kind of proteinuria if not known nephrotic range proteinuria. Echo was ordered to assess for EF function. I did consult with ENT to evaluate her. She reports difficulty breathing and a CT cervical neck was ordered. Endocrinology was consulted for underlying hypothyroidism, but despite that the patient is not taking any medications for that. We will go ahead and continue with the steroids for now. She is on Lovenox for DVT prophylaxis. Await final recommendations by the consultants. I will go ahead and order a right upper quadrant ultrasound as well to see if there is any kind of ascites is causing this edema. We will go ahead and put her also on some diuretics as well with Bumex 1 mg b.i.d. We will continue with steroids and monitor very closely. At this time, she reports that it is more of a breathing issue more than a swallowing issue hence the reason why for the ENT consultation. MD GIDEON May/ASHLEY /[id number]
[2019-01-09] MEDS: LACTATED RINGER'S 1,000 ML IV SCH (01:08)
[2019-01-09] MEDS: PROMETHAZINE 25MG/ NS 50ML (IV) IV PRN (01:08)
[2019-01-09] MEDS: MORPHINE SULFATE INJ 4 MG/ML INJ 1ML IV PRN ×5 (01:08→22:11)
[2019-01-09] MEDS: METHYLPREDNISOLONE SOD SUCC 125 MG/2ML VIAL IV SCH ×3 (04:00→16:00)
--- NOTE | 2019-01-09 07:12 | NUR ---
The patient is laying in bed, eyes closed and respirations are even and unlabored. Has not complained of pain since the morphine was given to her. She has oxygen @ 2L via NC. Left IV is patent. Bed is low, Wheels are locked and call light is within reach.
[2019-01-09] MEDS: ALBUTEROL/IPRATROPIUM 3 ML NEB NEB SCH ×3 (07:17→19:30)
--- NOTE | 2019-01-09 08:28 | Diagnostic Imaging Report ---
CT Soft Tissue Neck TECHNIQUE: Neck CT WITH intravenous contrast. The neck was scanned utilizing a multidetector helical scanner from the skull base to the lung apices after administration of IV contrast. Coronal and sagittal reformations were obtained. Routine protocol was performed. COMPARISON: Chest CT of the same day. IV CONTRAST: 100mL Isovue 370 RADIATION DOSE: Total DLP: 844.4 mGy*cm. Dose modulation, iterative reconstruction, and/or weight based adjustment of the mA/kV was utilized to reduce the radiation dose to as low as reasonably achievable. COMPLICATIONS: None FINDINGS: The visualized brain parenchyma demonstrates no significant abnormality.There is no evidence of intracranial hemorrhage, infarction or intracranial mass lesion.Ventricles, sulci, and cisterns are normal in size and configuration. The visualized arteries of the [place] are patent. The soft tissues of the neck appear unremarkable. The parotid glands, submandibular glands appear unremarkable. The paranasal sinuses and mastoid air cells are patent. Cervical spine alignment is normal. No acute osseous injury. The prevertebral soft tissues are normal in thickness. No cervical lymphadenopathy. For detailed findings regarding the intrathoracic findings please refer to the concurrently performed and reported dedicated chest CT. IMPRESSION: No acute findings in the neck. Signed by: Matthew Travis MD on 01/09/2019 8:25 AM
[2019-01-09] MEDS: FLUTICASONE PROPIONATE NASAL SPRAY NS SCH (08:41)
[2019-01-09] MEDS: BUMETANIDE 1 MG TAB PO SCH ×2 (08:41→16:39)
[2019-01-09] MEDS: FOLIC ACID 1 MG TAB PO SCH ×2 (08:41→16:39)
[2019-01-09] MEDS: NYSTATIN SUSPENSION 5 ML UDC PO SCH ×4 (08:41→22:11)
[2019-01-09] MEDS: GUAIFENESIN 600 MG TAB PO SCH ×2 (08:41→22:11)
[2019-01-09] MEDS: FAMOTIDINE 20 MG/2 ML VIAL IV SCH (08:41)
[2019-01-09] MEDS: CEFEPIME 2 GM/NS 0.9% 100 ML 100 ML IV SCH ×2 (08:41→22:11)
[2019-01-09] MEDS: HYDROXYCHLOROQUINE SULFATE 200 MG TAB PO SCH ×2 (08:41→16:39)
[2019-01-09] MEDS: SALINE 0.65% NAS SOLN 1 SPRAY BTL SCH ×4 (10:17→22:11)
[2019-01-09 11:38] LABS: CREATININE,URINE RANDOM 55.09 mg/dL (47-110)
[2019-01-09 11:39] LABS: TOTAL PROTEIN, URINE < 6.8 mg/dL (1-14)
--- NOTE | 2019-01-09 15:29 | Consultation ---
DATE OF CONSULTATION: 01/09/2019 HISTORY OF PRESENT ILLNESS: I was kindly asked to see this 33-year-old woman for evaluation of neck swelling and difficulty swallowing. The patient has roughly 18-month history of mixed connective tissue disease, which has been treated by her appliance adjuster and presents with a history of difficulty swallowing, which has been present for approximately one month, but much worse over the last one week. She presented to the emergency department and was found to have pneumonia and was admitted for evaluation and treatment. She also reports nasal congestion and excessive drainage down the back of her throat, which has also been present for 1-1/2 years and there is no seasonal variation in her symptoms. REVIEW OF SYSTEMS: Otolaryngology review of systems is otherwise negative. PAST MEDICAL HISTORY: Reviewed in detail in the chart. PAST SURGICAL HISTORY: Reviewed in detail in the chart. PHYSICAL EXAMINATION: HEENT: Tympanic membranes and external auditory canals are normal bilaterally. She has a mild nasal septal deviation to the right. There was moderate edema of the nasal mucosa with thick mucus in the nasal cavity. Oral cavity examination shows moderate candidiasis on both the dorsal surface of the tongue as well as the buccal mucosa and soft palate. There is [id number] postnasal drainage. She has swelling on both sides of her neck, but there is no palpable cervical adenopathy. ASSESSMENT: 1. Dysphagia. 2. Oral candidiasis. 3. Chronic rhinosinusitis. 4. Nasal septal deviation. 5. Neck swelling of unknown etiology. PLAN: 1. Awaiting CT scan results of neck CT. 2. Modified barium swallow. 3. Flonase 2 puffs each side of nose daily. 4. [place] Nasal spray two puffs each side of nose q.4 hours while awake. 5. Guaifenesin 1200 mg b.i.d. 6. Nystatin suspension 5 mL five times daily. MD MAGDA Tobin/MODL /[id number]
--- NOTE | 2019-01-09 15:32 | Diagnostic Imaging Report ---
PROCEDURE: X-RAY MODIFIED BARIUM SWALLOW COMPARISON: None. INDICATION: Aspiration Radiation Details: Fluoroscopy time: 0.9 minutes Cumulative dose: 1.34 mGy DISCUSSION: Fluoroscopic examination was performed in conjunction with speech pathology during swallowing a variety of thin and thick liquid consistencies. Provided images demonstrate no laryngeal penetration or aspiration. CONCLUSION: Modified barium swallow demonstrating no laryngeal penetration or aspiration. Please refer to the speech pathology report for further details. Signed by: Matthew Travis MD on 01/09/2019 3:29 PM
--- NOTE | 2019-01-09 16:07 | Diagnostic Imaging Report ---
EXAM: US ABDOMEN COMPLETE DATE: 01/09/2019 12:00 AM INDICATION: Liver cirrhosis, anasarca COMPARISON: None TECHNIQUE: Transverse and longitudinal ely scale and color doppler sonographic images of the upper abdomen were obtained. FINDINGS: There is no evidence of fluid or masses seen in the area of clinical concern in the right lower quadrant. LIVER 17.8 cm in the right midclavicular line. Normal echogenicity of the liver with normal contour, no masses. SPLEEN 10.8 cm in maximum diameter. Normal echogenicity, no masses. GALLBLADDER There is sludge within the gallbladder. No gallbladder wall thickening, distension, stone, or pericholecystic fluid. NEgative reported sonographic Broussard's sign. 3 mm gallbladder wall thickness. BILE DUCTS No intra nor extra-hepatic biliary dilation. Common bile duct measures 0.3cm PANCREAS: Visualized portions are normal. RIGHT KIDNEY: 12.5 cm Echogenicity: Normal Collecting System: No hydronephrosis Stones: None Cyst/Mass: None LEFT KIDNEY: 12.8 cm Echogenicity: Normal Collecting System: No hydronephrosis Stones: None Cyst/Mass: None VESSELS: Aorta: Visualized portions are within normal size limits Inferior Vena Cava: Visualized portions are normal Main Portal Vein: 1.1 cm, normal size with hepatopetal flow. FREE FLUID: None IMPRESSION: Gallbladder sludge. No sonographic evidence of cholelithiasis or cholecystitis. Hepatomegaly. Signed by: Matthew Travis MD on 01/09/2019 4:03 PM
--- NOTE | 2019-01-09 16:08 | Diagnostic Imaging Report ---
Thyroid ultrasound CPT code: 03099 History: Hyperthyroidism Comparison: None Findings: The thyroid echotexture is normal. Vascularity is normal. The right lobe measures 4.9 x 1.3 x 1.4 cm. The left lobe measures 4.8 x 1.2 x 1.7 cm. The isthmus measures 0.4 cm. Nodules (measurements are AP, transverse, craniocaudal): Right Lobe: No cystic mass or discrete solid nodule identified. Left Lobe: No cystic mass or discrete solid nodule identified. Isthmus: No cystic mass or discrete solid nodule identified. Lymph Nodes: No cervical lymph nodes are identified. Parathyroids: Not visualized. IMPRESSION: Normal thyroid ultrasound. ACR glossary of thyroid rads TI-RADS 1: No focal lesion. TI-RADS 2: Not suspicious. TI-RADS 3: Mildly suspicious (recommend FNA is greater than or equal to 2.5 cm; follow-up at 1, 3, and 5 years if greater than or equal to 1.5 cm) TI-RADS 4: Moderately Suspicious (recommend FNA is greater than or equal to 1.5 cm; follow-up at 1, 2, 3, and 5 years) TI-RADS 5: Highly suspicious (recommend FNA is greater than or equal to 10 mm) TI-RADS 6: Biopsy-proven malignancy Signed by: Matthew Travis MD on 01/09/2019 4:05 PM
[2019-01-09] MEDS: FAMOTIDINE 20 MG TAB PO SCH (16:39)
[2019-01-09] MEDS: ENOXAPARIN SOD INJ 40 MG/0.4 ML SYR SC SCH (16:39)
[2019-01-09 17:16] LABS: FREE T4 (FREE THYROXINE) 0.77 ng/dL (0.8-1.8); THYROID STIMULATING HORMONE 0.371 uIU/mL (0.350-4.940)
[2019-01-09] MEDS: FUROSEMIDE INJ 10 MG/ML 4 ML VIAL IV SCH ×2 (17:50→23:32)
[2019-01-09] MEDS: POTASSIUM CHLORIDE 20 MEQ TAB CR PO SCH (17:50)
--- NOTE | 2019-01-09 20:46 | Progress Note ---
DATE: 01/09/2019 Medicine Progress Note SUBJECTIVE: The patient is doing well, with no complaints. She actually states that after all her imaging studies were back found to be negative with the consults she is not able to swallow despite that and even having a modified barium swallow, she still eating according to the nursing staff. I am not sure she truly has any swallowing deficit, but I will go ahead and get GI consultation to come and evaluate her. PHYSICAL EXAMINATION: VITAL SIGNS: Temperature 98.4, pulse of 95, respiratory rate is 19, blood pressure 112/55, and pulse ox 99% on room air. GENERAL: Not in acute distress, alert and oriented x3, cooperative on examination. HEENT: Head is normocephalic and atraumatic. Eyes; pupils are equal, round, and reactive to light bilaterally. Extraocular movements are intact bilaterally. Throat, no evidence of erythema or exudates in the posterior pharynx. Has poor dentition NECK: Supple. Good range of motion. PULMONARY: Clear to auscultation bilaterally. No wheezing, rales, or rhonchi. No crackles appreciated. CARDIOVASCULAR: Positive S1, S2. No murmurs, rubs, or gallops appreciated. ABDOMEN: Soft, nondistended, and nontender to palpation. Bowel sounds present. MUSCULOSKELETAL: Strength is 5/5 throughout. No evidence of any muscle deficits on examination. No weakness appreciated. NEUROLOGICAL: Cranial nerves II through XII grossly intact. No evidence of any neurological deficits on exam. SKIN: Intact. Warm to touch. Good cap refill. PSYCHIATRIC: Normal affect and mood. EXTREMITIES: No edema. Good range of motion throughout. LABORATORY DATA: CBC none. Chemistry, TSH 0.371, free T3 is pending. Urinalysis negative. UPC with zero protein, microalbumin to creatinine is pending. IMMUNOLOGY STUDIES: antibody is pending. The Monospot was negative. Group A strep is negative. MICROBIOLOGY: Throat cultures are negative. Blood cultures, no growth to date. IMAGING STUDIES: Soft tissue CT was negative. Chest CT was negative. Thyroid ultrasound negative. Abdominal ultrasound negative. Modified barium swallow was normal. A 2D echo showed an EF of 60% to 65%. IMPRESSION: 1. History of mixed connective tissue disorder, on immunosuppression. 2. Lower extremity edema. 3. History of hypothyroidism. 4. Difficulty breathing, but normal examination. 5. Morbidly obese. PLAN: At this time, we will continue with the same immunosuppression with folic acid. There will be no changes in her anti-suppression medication. In relation to her edema, her urine protein to creatinine was normal. Actually, she does not have any proteinuria and albumin was normal. Condition less likely from proteinuria. Her liver ultrasound was found to be negative for cirrhosis, which could play a role in her edema as well. Her 2D echo was normal as well. It is likely the etiology of her swelling secondary to salt intake and also volume intake. It is likely to be from salt as she has significant amount of regular sodas as well as regular chips and snacks at bedside. In relation to her hyperthyroidism, Endocrinology was consulted. Thyroid ultrasound was found to be negative for any evidence of swelling. Her CT of the neck was negative as well. ENT was consulted and followed, he ordered a modified barium swallow, which was found to be normal. I will go ahead and consult with GI to further evaluate and see if it is an esophageal issue leading to the swallowing problem. I will also put her on IV diuretics to get the swelling off. Continue same plan of care. I will monitor very closely. MD GIDEON May/ASHLEY /[id number]
--- NOTE | 2019-01-09 21:01 | Progress Note ---
DATE: 01/09/2019 SUBJECTIVE: The patient was seen in followup after undergoing a CT scan. The CT scan was negative. The patient reports that her symptoms have remained relatively unchanged. OBJECTIVE: On physical examination by fiberoptic diagnostic rhinoscopy, she had moderate edema of the nasal mucosa. There was moderate S-shaped nasal septal deviation. There was no significant paranasal sinus pathology noted at the ostiomeatal complex, however, there was crusting in the posterior aspect of the nasal cavity and along the inferior turbinate. The nasopharynx was unremarkable, and fiberoptic laryngoscopy showed normal vocal cord motion. There were no masses. She had minimal edema and erythema of the posterior commissure of the larynx and mild edema of the entire supraglottic larynx. ASSESSMENT: 1. No clinically significant otolaryngology changes. 2. Chronic rhinosinusitis. 3. No significant laryngeal pathology. PLAN: 1. No additional otolaryngology medications at this time. 2. Cleared for discharge from otolaryngology standpoint, and I will consider cervical esophagoscopy with cervical esophageal dilation as an outpatient based on her clinical course. MD MAGDA Tobin/ASHLEY /[id number]
--- NOTE | 2019-01-09 21:06 | Consultation ---
DATE OF CONSULTATION: 01/09/2019 Endocrine consultation. This is a patient Dr. Flores. Thank you very much for referring this patient. HISTORY OF PRESENT ILLNESS: This is a 33-year-old white female, who is referred to me for evaluation of hyperthyroidism. The patient was diagnosed to have hyperthyroidism about a year back and she has been on methimazole 7.5 mg once daily. She came to the hospital with a history of choking and swelling of her face as well as of her lower extremities. The patient is a chronic smoker. She does not have any other major medical problems in the past. During the hospital stay, the patient was given Solu-Medrol. PHYSICAL EXAMINATION: GENERAL: Today, the patient is alert, awake, little bit apprehensive. She is mild to moderately overweight. VITAL SIGNS: Her heart rate is around 78, blood pressure is 130/80 mmHg. HEENT EXAMINATION: Essentially unremarkable. Her thyroid is palpable and tender. CHEST EXAMINATION: Bilateral vesicular breathing. She has bilateral bronchospasm. CARDIOVASCULAR: First and second heart sounds. There is no third or fourth heart with the systolic grade 2/6. DIAGNOSTIC DATA: X-ray of chest showed some infiltrates. CLINICAL IMPRESSION: History of hyperthyroidism, chronic smoker, swelling of the neck and shortness of breath. PLAN: At this time is to do a free T3, free T4, and peroxidase antibody. We will also need a sedimentation rate. We will review the CT scan of the chest and may suggest an ultrasound of the thyroid on followup. Thank you for referring this patient. I will be following this patient with you. MD MATT Banerjee/ASHLEY /[id number]
[2019-01-09] MEDS: DOXAZOSIN MESYLATE 2 MG TAB PO SCH (22:11)
[2019-01-09] MEDS: AZITHROMYCIN 500MG/NS 250 ML 250 ML IV SCH (23:15)
[2019-01-10] VITALS (7 sets, daily range): BP systolic 88–120; BP diastolic 52–76
[2019-01-10] MEDS: FUROSEMIDE INJ 10 MG/ML 4 ML VIAL IV SCH ×2 (05:14→12:17)
[2019-01-10] MEDS: SALINE 0.65% NAS SOLN 1 SPRAY BTL SCH ×5 (05:14→22:00)
[2019-01-10] MEDS: NYSTATIN SUSPENSION 5 ML UDC PO SCH ×5 (05:14→21:30)
[2019-01-10 05:25] LABS: BASOPHILS # (AUTO) 0.1 (0.0-0.1); BASOPHILS % 0.5 % (0.0-1.0); EOSINOPHILS % 0.1 % (0.0-6.0); HEMATOCRIT 42.4 % (34.2-44.1); HEMOGLOBIN 13.8 g/dL (12.0-16.0); LYMPHOCYTES # (AUTO) 1.2 (1.0-3.2); LYMPHOCYTES % 10.7 % (18.0-39.1); MEAN CORPUSCULAR HGB CONC 32.5 g/dL (31-35); MEAN CORPUSCULAR VOLUME 98.4 fL (81-99); MONOCYTES # (AUTO) 0.9 (0.2-0.8); MONOCYTES % 8.1 % (4.4-11.3); NEUTROPHILS # (AUTO) 8.5 (2.1-6.9); NEUTROPHILS % 77.7 % (38.7-80.0); PLATELET COUNT 234 x10e3/uL (140-360); RED BLOOD COUNT 4.31 x10e6/uL (3.6-5.1); RED CELL DISTRIBUTION WIDTH 15.9 % (11.7-14.4)
[2019-01-10] MEDS: MORPHINE SULFATE INJ 4 MG/ML INJ 1ML IV PRN ×5 (05:35→22:22)
[2019-01-10 05:47] LABS: ANION GAP 16.6 mmol/L (8-16); BLOOD UREA NITROGEN 42 mg/dL (7-26); BUN/CREATININE RATIO 54 (6-25); CALCIUM 9.2 mg/dL (8.4-10.2); CARBON DIOXIDE 31 mmol/L (22-29); CHLORIDE 98 mmol/L (98-107); CREATININE, SERUM 0.78 mg/dL (0.57-1.11); EST GLOMERULAR FILTRATION RATE > 60 ML/MIN (60-); GLUCOSE 97 mg/dL (74-118); POTASSIUM 3.6 mmol/L (3.5-5.1); SODIUM 142 mmol/L (136-145)
--- NOTE | 2019-01-10 07:00 | NUR ---
received pt lying in bed with eyes closed, Resp even and unlabored. call light within reach.
[2019-01-10] MEDS: ALBUTEROL/IPRATROPIUM 3 ML NEB NEB SCH ×3 (07:08→19:35)
[2019-01-10 07:21] LABS: BAND NEUTROPHILS % (MANUAL) 1 %; LYMPHOCYTES % (MANUAL) 19 % (19-48); MONOCYTES % (MANUAL) 5 % (3.4-9.0); NEUTROPHILS % (MANUAL) 75 % (40-74); PLATELET ESTIMATE ADEQUATE; PLATELET MORPHOLOGY COMMENT NORMAL
[2019-01-10 07:22] LABS: ANISOCYTOSIS SLIGHT; OVALOCYTES FEW; RBC MORPHOLOGY COMMENT ABNORMAL
[2019-01-10] MEDS: FAMOTIDINE 20 MG TAB PO SCH ×2 (09:05→16:30)
[2019-01-10] MEDS: CEFEPIME 2 GM/NS 0.9% 100 ML 100 ML IV SCH ×2 (09:10→21:30)
[2019-01-10] MEDS: FOLIC ACID 1 MG TAB PO SCH ×2 (09:11→17:00)
[2019-01-10] MEDS: FLUTICASONE PROPIONATE NASAL SPRAY NS SCH (09:11)
[2019-01-10] MEDS: GUAIFENESIN 600 MG TAB PO SCH ×2 (09:12→21:30)
[2019-01-10] MEDS: POTASSIUM CHLORIDE 20 MEQ TAB CR PO SCH (09:12)
[2019-01-10] MEDS: HYDROXYCHLOROQUINE SULFATE 200 MG TAB PO SCH ×2 (09:12→17:00)
[2019-01-10] MEDS ORDERED: MIDAZOLAM HCL 2 MG/2 ML VIAL ONE (13:01)
[2019-01-10] MEDS ORDERED: LIDOCAINE HCL 2% LOCAL INJ 5 ML SDV VIAL INJ ONE (14:26)
[2019-01-10] MEDS ORDERED: PROPOFOL IV EMULSION 10 MG/ML 50 ML VIAL ONE (14:26)
[2019-01-10] MEDS: ENOXAPARIN SOD INJ 40 MG/0.4 ML SYR SC SCH (17:00)
--- NOTE | 2019-01-10 18:10 | NUR ---
patient returned from endoscopy s/p EGD. transferred from stretcher to bed, bed in low and locked position. call light within reach.
--- NOTE | 2019-01-10 19:05 | NUR ---
Pt visited in room during nursing rounds. Patient alert and oriented x3. Ambulatory in room prn. at bedside visiting. Pt with frequent lower back pain and pain on both legs. Pt will be medicated accordingly. On scheduled IV antibiotics. Call hernandez within reach.
--- NOTE | 2019-01-10 20:35 | Progress Note ---
DATE: 01/10/2019 Medicine Progress Note SUBJECTIVE: The patient is undergoing EGD. The patient was evaluated prior to the EGD procedure. No overnight events. The patient had significant amount of diuresis after given diuretics. PHYSICAL EXAMINATION: VITAL SIGNS: Temperature 95.2, pulse 92, respiratory rate is 18, blood pressure 117/76, and pulse ox 96% on room air. GENERAL: Not in acute distress. Alert and oriented x3. Cooperative on examination. HEENT: Head; normocephalic, atraumatic. Eyes; pupils are equal, round, and reactive to light bilaterally. Extraocular movements intact bilaterally. Throat; no evidence of erythema or exudates in the posterior pharynx. Has poor dentition. NECK: Supple. Good range of motion. PULMONARY: Clear to auscultation bilaterally. No wheezing, no rales, no rhonchi, no crackles appreciated. CARDIOVASCULAR: Positive S1 and S2. No murmurs, rubs, or gallops appreciated. ABDOMEN: Soft, nondistended, and nontender to palpation. Bowel sounds present. MUSCULOSKELETAL: Strength is 5/5 throughout. No evidence of any muscle deficits on examination. No weakness appreciated. NEUROLOGIC: Cranial nerve II through XII grossly intact. No evidence of any neurological deficits on exam. SKIN: Intact. Warm to touch. Good cap refill. PSYCHIATRIC: Normal affect and mood. EXTREMITIES: No edema. Good range of motion throughout. LAB FINDINGS: White count is 10.9, hemoglobin 13.8, hematocrit is 42, platelets of 234. Chemistry; sodium 142, potassium 3.6, chloride 98, bicarb 21, anion gap of 16, BUN is 22, creatinine 0.78, glucose is 97, calcium is 9.2. Urinalysis was negative. MICROBIOLOGY: Blood and throat cultures were negative. IMAGING STUDIES: None new. IMPRESSION: 1. History of mixed connective tissue disorder, on immunosuppression. 2. Lower extremity edema. 3. History of hypothyroidism. 4. Difficulty swallowing, status post esophagogastroduodenoscopy with dilatation of her distal esophagus, also with gastritis and esophagitis. 5. Morbidly obese. PLAN: At this time, ENT saw the patient, no further workup needed by their standpoint. Endocrinology as well, no further workup needed. We will continue same home medications for now. All imaging studies were found to be negative. GI was consulted yesterday. The patient underwent EGD this afternoon, in which she ended up having an esophageal dilatation, evidence of esophagitis and gastritis. This could explain the patient's underlying etiology of feeling of food stuck in her throat. At this time, we will continue to follow the patient very closely. Get a.m. labs. I will continue with same plan of care. MD GIDEON May/ASHLEY /[id number]
[2019-01-10] MEDS: DOXAZOSIN MESYLATE 2 MG TAB PO SCH (21:00)
[2019-01-10] MEDS ORDERED: SODIUM CHLORIDE 0.9% 250ML 250 ML ONE (21:21)
--- NOTE | 2019-01-10 21:52 | NUR ---
Called Dr. Flores and obtained order to discontinue telemetry.
[2019-01-10] MEDS: AZITHROMYCIN 500MG/NS 250 ML 250 ML IV SCH (22:00)
--- NOTE | 2019-01-11 00:16 | Operative Report ---
DATE OF PROCEDURE: 01/10/2019 SURGEON: Dru Bernardo MD PROCEDURE: EGD with biopsies and esophageal dilatation. INDICATION FOR PROCEDURE: Dysphagia to solids, acid reflux. MEDICATIONS: The patient was done under MAC, please see anesthesiologist's note. PROCEDURE IN DETAIL: With the patient in left lateral decubitus position, a flexible fiberoptic Olympus gastroscope was introduced into the esophagus under direct visualization without any difficulty. There were some patchy intense erythema noted in the distal esophagus. The scope was then advanced with ease into the stomach. Mucosa overlying the antrum and the body revealed some patchy intense erythema and [id number] edema and biopsies were obtained and sent to stain for H. pylori. The pylorus was of normal contour and shape, it was intubated with ease and the scope was advanced all the way to the second portion of the duodenum. The scope was then withdrawn slowly and mucosa overlying the proximal second portion and the duodenal bulb appeared to be within normal limits. The scope was then withdrawn back into the stomach and retroflexed and mucosa overlying the fundus and the cardia appeared to be within normal limits. The scope was then straightened out, it was subsequently withdrawn. The esophagus was then dilated to size 52-German Richards. The patient tolerated the procedure well. IMPRESSION: 1. Distal esophagitis. 2. Esophagus dilated to size 52-German Richards. 3. Gastritis, biopsied. Biopsies sent to stain for Helicobacter pylori. PLAN: Follow up histology. Continue PPI therapy. Initiate GI soft diet. Dru Bernardo MD [facility] [place] /[id number] cc: Andriy Flores MD
[2019-01-11 02:30] VITALS: BP 106/57
[2019-01-11] MEDS: MORPHINE SULFATE INJ 4 MG/ML INJ 1ML IV PRN ×3 (02:34→12:07)
[2019-01-11] MEDS: NYSTATIN SUSPENSION 5 ML UDC PO SCH ×4 (05:43→17:47)
[2019-01-11] MEDS: SALINE 0.65% NAS SOLN 1 SPRAY BTL SCH ×4 (05:43→17:48)
[2019-01-11 06:20] LABS: BASOPHILS % 0.3 % (0.0-1.0); EOSINOPHILS % 0.4 % (0.0-6.0); HEMATOCRIT 40.8 % (34.2-44.1); HEMOGLOBIN 12.9 g/dL (12.0-16.0); LYMPHOCYTES # (AUTO) 2.4 (1.0-3.2); LYMPHOCYTES % 32.5 % (18.0-39.1); MEAN CORPUSCULAR HEMOGLOBIN 31.8 pg (28-32); MEAN CORPUSCULAR HGB CONC 31.6 g/dL (31-35); MEAN CORPUSCULAR VOLUME 100.5 fL (81-99); MONOCYTES # (AUTO) 0.6 (0.2-0.8); MONOCYTES % 7.9 % (4.4-11.3); NEUTROPHILS # (AUTO) 4.1 (2.1-6.9); NEUTROPHILS % 56.7 % (38.7-80.0); PLATELET COUNT 203 x10e3/uL (140-360); RED BLOOD COUNT 4.06 x10e6/uL (3.6-5.1); RED CELL DISTRIBUTION WIDTH 15.9 % (11.7-14.4)
[2019-01-11 06:31] VITALS: BP 106/67
[2019-01-11] MEDS: FAMOTIDINE 20 MG TAB PO SCH ×2 (06:34→17:47)
[2019-01-11 06:36] LABS: BLOOD UREA NITROGEN 38 mg/dL (7-26); BUN/CREATININE RATIO 50 (6-25); CALCIUM 8.6 mg/dL (8.4-10.2); CARBON DIOXIDE 31 mmol/L (22-29); CHLORIDE 101 mmol/L (98-107); CREATININE, SERUM 0.76 mg/dL (0.57-1.11); EST GLOMERULAR FILTRATION RATE > 60 ML/MIN (60-); GLUCOSE 83 mg/dL (74-118); SODIUM 143 mmol/L (136-145)
[2019-01-11] MEDS: ALBUTEROL/IPRATROPIUM 3 ML NEB NEB SCH ×2 (06:59→13:10)
--- NOTE | 2019-01-11 07:06 | NUR ---
pt awake upon rounds pt alert resp even and unlabored at this time no distress noted, pt able to make needs known, call light in reach.
[2019-01-11 08:54] VITALS: BP 113/54
[2019-01-11] MEDS: FLUTICASONE PROPIONATE NASAL SPRAY NS SCH (08:54)
[2019-01-11] MEDS: GUAIFENESIN 600 MG TAB PO SCH (08:56)
[2019-01-11] MEDS: FOLIC ACID 1 MG TAB PO SCH ×2 (08:56→17:47)
[2019-01-11] MEDS: HYDROXYCHLOROQUINE SULFATE 200 MG TAB PO SCH ×2 (08:56→17:47)
[2019-01-11] MEDS: CEFEPIME 2 GM/NS 0.9% 100 ML 100 ML IV SCH (08:57)
[2019-01-11 10:00] VITALS: BP 113/54
[2019-01-11 12:04] LABS: LYMPHOCYTES % (MANUAL) 28 % (19-48); MONOCYTES % (MANUAL) 10 % (3.4-9.0); NEUTROPHILS % (MANUAL) 62 % (40-74); NUCLEATED RED BLOOD CELLS 1
[2019-01-11 12:10] LABS: PLATELET ESTIMATE ADEQUATE; PLATELET MORPHOLOGY COMMENT NORMAL; RBC MORPHOLOGY COMMENT NORMAL
[2019-01-11 13:30] VITALS: BP 115/58
[2019-01-11] MEDS: HYDROCODONE/APAP 7.5MG-325MG 1 EA TAB PO PRN (14:27)
[2019-01-11 17:18] VITALS: BP 98/55
[2019-01-11] MEDS: ENOXAPARIN SOD INJ 40 MG/0.4 ML SYR SC SCH (17:47)
--- NOTE | 2019-01-11 18:00 | NUR ---
pt discharge home with prescriptions, pt and family member was educated on medication. pt and family member verbalized understanding. iv site removed , no swelling, no redness to site.
--- NOTE | 2019-01-12 01:10 | Discharge Summary ---
FINAL DISCHARGE DIAGNOSES: 1. Community-acquired pneumonia. 2. History of mixed connective tissue disorder on immunosuppression. 3. Lower extremity edema, resolved. 4. History of hyperthyroidism. 5. Difficulty swallowing, status post EGD with dilatation of her distal esophagus shows evidence of gastritis and esophagitis. 6. Morbidly obese. CONSULTANTS: ENT, GI, Endocrinology. PHYSICAL EXAMINATION: VITAL SIGNS: Temperature is 98.7, pulse 106, respiratory rate is 19, blood pressure is 115/56, and pulse ox is 96% on room air. LAB FINDINGS: Show white count 7.3, hemoglobin 12.9, hematocrit is 41, and platelets of 203. Chemistry; sodium 143, potassium 4, chloride 101, bicarb 21, anion gap of 15, BUN 38, creatinine is 0.76, glucose is 83, calcium 8.6, TSH is 0.37, free T4 of 0.77, free T3 of 2.1, albumin 3.8, total bilirubin is 0.3, AST 23, ALT 62, lactic acid is 13, which is normal at this hospital. Urinalysis was negative. Urine protein to creatinine was 0 g of proteinuria. Microalbumin to creatinine less than 6.8 mcg. No protein seen in the urine. Thyroid peroxidase antibodies 15. Serologies; Monospot negative, group a strep negative. MICROBIOLOGY: Blood cultures negative. Throat cultures were negative. IMAGING STUDIES: Chest x-ray shows a lingular pneumonia. Repeat x-ray in 6 to [address] weeks. Soft-tissue CT, no acute findings in the neck. Chest CT, no focal pneumonia. Silhouetting of the left heart border on the prior chest radiograph is due to prominent pericardial fat pad. Prominent biapical subpleural blebbing. Hepatomegaly. Thyroid ultrasound normal. Abdominal ultrasound shows gallbladder surgery. No evidence of cholelithiasis or cholecystitis. Hepatomegaly. Modified barium swallow shows no evidence of laryngeal penetration or aspiration. HOSPITAL COURSE: This is a 33-year-old female, morbidly obese with past medical history of mixed connective tissue disorder presents to the ED with complaints of difficulty swallowing. Initially, she reports that she had difficulty breathing, requiring an ENT consultation. The patient was evaluated by ENT, in which CT scan of her neck was performed, found to be negative, modified barium swallow found to be normal, and recommended some Flonase that she can purchase over the counter. He also recommended some ocean nasal spray. No further workup needed by ENT. Endocrinology was consulted for concerns for underlying border, but her thyroid ultrasound was found to be negative and her thyroid level was found to be within normal range. After further discussion, it was felt that the patient needed a GI consultation, Dr. Bernardo was consulted. The patient was found to have a distal esophageal stricture requiring dilatation, which was performed by ENT on 01/10/2019. The patient did well postprocedure with no issues. She actually tolerated the procedure well and stated that she was eating much better now with no issues. The patient also found to have gastritis and esophagitis and discharged on oral Protonix. She was also treated for underlying pneumonia and will be discharged on oral antibiotics as well. On discharge, the patient was cleared by all consultants for discharge home. She also was on IV diuretics, while here in the hospital stay due to edema, but improved after diuretics were given and was discharged on oral Bumex. On the day of discharge, vital signs were stable, labs reviewed and stable. The patient seen and evaluated, examined thoroughly on the day of discharge with no other complaints. The patient verbalized understanding and agrees to plan of care to follow up accordingly as an outpatient with primary care physician in 1 week and the consultants including GI as an outpatient in 2 weeks' time. MEDICATIONS: See med reconciliation form. DISPOSITION: To home. CONDITION: Stable. DIET: Heart healthy. In the event of any worsening symptoms, the patient was advised to come back to the ED for further evaluation. Discharge summary took greater than 35 minutes. MD GIDEON May/ASHLEY /[id number]
== END 2019-01-11 18:07 | disposition home or self-care (01) | DRG 194 ==
LOC: ER 19:37 → ERHOLD 01-08 00:05 → MED/SURG2 01-08 00:15
PROVIDERS: ADMIT Internal Medicine; ATTEND Internal Medicine
PROC: 09JK8ZZ Inspection of Nasal Mucosa and Soft Tissue, Via Natural or Artificial Opening Endoscopic (ICD-10-PCS; 2019-01-09)
PROC: 0DB78ZX Excision of Stomach, Pylorus, Via Natural or Artificial Opening Endoscopic, Diagnostic (ICD-10-PCS; principal; 2019-01-10 16:40)
DX: J18.9 Pneumonia, unspecified organism (principal); B37.0 Candidal stomatitis; L94.9 Localized connective tissue disorder, unspecified; R60.0 Localized edema; E66.01 Morbid (severe) obesity due to excess calories; Z68.29 Body mass index [BMI] 29.0-29.9, adult; E03.9 Hypothyroidism, unspecified; M06.9 Rheumatoid arthritis, unspecified; K20.9 Esophagitis, unspecified; K29.70 Gastritis, unspecified, without bleeding; F17.200 Nicotine dependence, unspecified, uncomplicated; J32.9 Chronic sinusitis, unspecified; J34.2 Deviated nasal septum; R22.1 Localized swelling, mass and lump, neck
CPT/HCPCS: 36415; 43239; 43450; 70491; 71046; 71260; 74230; 76536; 76700; 80048; 80053; 81001; 82044; 82570; 83518; 83605; 84156; 84436; 84439; 84443; 84481; 84702; 85025; 86308; 86376; 87040; 87070; 88305; 88312; 93306; 94640; 99284; J0456; J1200; J1650; J1885; J1940; J2001; J2250; J2270; J2405; J2550; J2930; J7030; J7050; J7121; Q9967

== ENCOUNTER → 2020-04-19 | Day surgery (SDC) | payer OTHER ==
[~2020-04-19] MED LIST changes: +BELBUCA750 MCG PO; +CIMZIA400 MG/2 M INJ; +CYMBALTA30 MG PO; +DOXAZOSIN MESYLA2 MG PO; +FENTANYL CITRATE/PF 100MCG/2 ML INJ ONE; +FLUCONAZOLE 200 MG/100 ML 100 ML IV SCH; +FOLIC ACID1 MG PO; -IOPAMIDOL 370 MG/ML 200 ML INFUS..BTL INJ ONE; +LIDOCAINE HCL 2% LOCAL INJ 5 ML SDV VIAL INJ ONE; +METHIMAZOLE5 MG PO; +METHOTREXATE2.5 MG PO; +METOCLOPRAMIDE HCL 10 MG/2ML VIAL ONE; +MIDAZOLAM HCL 2 MG/2 ML VIAL ONE; +PANTOPRAZOLE 40 MG 10ML VIAL ONE; +PLAQUENIL200 MG PO; +PREDNISONE10 MG PO; +PROPOFOL IV EMULSION 10 MG/ML 20 ML VIAL ONE; -SODIUM CHLORIDE 0.9% 250ML 250 ML ONE; +SYNTHROID100 MCG PO; +TIZANIDINE HCL2 MG PO
[2020-04-19 08:30] VITALS: BP 119/67
== END | disposition home or self-care (01) ==
LOC: OR 06:09
PROVIDERS: ATTEND Internal Medicine Gastroenterology
DX: B37.81 Candidal esophagitis (principal); K29.70 Gastritis, unspecified, without bleeding; K44.9 Diaphragmatic hernia without obstruction or gangrene; E03.9 Hypothyroidism, unspecified; M06.9 Rheumatoid arthritis, unspecified; M79.7 Fibromyalgia; R03.0 Elevated blood-pressure reading, without diagnosis of hypertension; Z01.812 Encounter for preprocedural laboratory examination; Z11.59 Encounter for screening for other viral diseases; F17.210 Nicotine dependence, cigarettes, uncomplicated; Z68.30 Body mass index [BMI] 30.0-30.9, adult
CPT/HCPCS: 43239; 43450; 81025; C9113; J2001; J2250; J2704; J2765; J3010; U0002; 43235

== ENCOUNTER → 2020-07-15 | Day surgery (SDC) | payer OTHER ==
[~2020-07-15] MED LIST changes: +FLUCONAZOLE 200 MG/100 ML 100 ML IV ONE; -FLUCONAZOLE 200 MG/100 ML 100 ML IV SCH; +FLUCONAZOLE 200 MG/100 ML 200 ML IV ONE; +FLUCONAZOLE 200 MG/100 ML IV ONE; -LIDOCAINE HCL 2% LOCAL INJ 5 ML SDV VIAL INJ ONE; -METOCLOPRAMIDE HCL 10 MG/2ML VIAL ONE; +PANTOPRAZOLE SO40 MG PO; -PROPOFOL IV EMULSION 10 MG/ML 20 ML VIAL ONE
[2020-07-15 12:20] VITALS: BP 126/79
[2020-07-20 14:11] LABS: ENDOMYSIAL ANTIBODIES, IGA Negative (Negative)
== END | disposition home or self-care (01) ==
LOC: OR 09:58
PROVIDERS: ATTEND Internal Medicine Gastroenterology
DX: B37.81 Candidal esophagitis (principal); K29.70 Gastritis, unspecified, without bleeding; K21.00 Gastro-esophageal reflux disease with esophagitis, without bleeding; K44.9 Diaphragmatic hernia without obstruction or gangrene; N20.0 Calculus of kidney; E03.9 Hypothyroidism, unspecified; M06.9 Rheumatoid arthritis, unspecified; M79.7 Fibromyalgia; R03.0 Elevated blood-pressure reading, without diagnosis of hypertension; F17.210 Nicotine dependence, cigarettes, uncomplicated; Z01.812 Encounter for preprocedural laboratory examination; Z20.822 Contact with and (suspected) exposure to COVID-19; Z68.30 Body mass index [BMI] 30.0-30.9, adult
CPT/HCPCS: 43239; 81025; 82784; 83516; 86256; C9113; J1450; U0002; J2250; J3010

== ENCOUNTER 2020-11-08 20:10 | Inpatient (IN) | payer OTHER ==
[~2020-11-08] VITALS: Ht 177.8 cm; Wt 90.7 kg
[~2020-11-08 20:10] MED LIST changes: -FENTANYL CITRATE/PF 100MCG/2 ML INJ ONE; -FLUCONAZOLE 200 MG/100 ML 100 ML IV ONE; -FLUCONAZOLE 200 MG/100 ML 200 ML IV ONE; -FLUCONAZOLE 200 MG/100 ML IV ONE; -MIDAZOLAM HCL 2 MG/2 ML VIAL ONE; -PANTOPRAZOLE 40 MG 10ML VIAL ONE
[2020-11-08] MEDS ORDERED: MORPHINE SULFATE INJ 4 MG/ML INJ 1ML IV STA ×2 (20:30→22:35)
[2020-11-08] MEDS ORDERED: SODIUM CHLORIDE 0.9% 1000ML 1,000 ML IV STA (20:30)
[2020-11-08] MEDS ORDERED: ONDANSETRON HCL INJ 2MG/ML 2ML 2 MG/ML VIAL IV STA ×2 (20:30→22:35)
[2020-11-08] MEDS ORDERED: IOPAMIDOL 370 MG/ML 200 ML INFUS..BTL INJ ONE (21:01)
[2020-11-08] MEDS ORDERED: SODIUM CHLORIDE 0.9% 50ML 50 ML ONE (21:01)
[2020-11-08] MEDS ORDERED: MORPHINE SULFATE INJ 4 MG/ML INJ 1ML ONE ×2 (21:13→22:45)
[2020-11-08] MEDS ORDERED: SODIUM CHLORIDE 0.9% 1000ML 1,000 ML ONE (21:13)
[2020-11-08] MEDS ORDERED: ONDANSETRON HCL INJ 2MG/ML 2ML 2 MG/ML VIAL ONE ×2 (21:13→22:45)
[2020-11-09] VITALS (9 sets, daily range): BP systolic 97–132; BP diastolic 55–80
[2020-11-09] MEDS ORDERED: ACETAMINOPHEN 325 MG TAB PO ONE (00:15)
[2020-11-09] MEDS ORDERED: ACETAMINOPHEN 325 MG TAB ONE (00:17)
[2020-11-09] MEDS: SODIUM CHLORIDE 0.9% 1000ML 1,000 ML IV SCH ×4 (00:38→19:19)
[2020-11-09] MEDS ORDERED: CELECOXIB200 MG PO (01:01)
[2020-11-09] MEDS: CIPROFLOXACIN 400 MG/D5W 200ML 200 ML IV SCH ×2 (01:10→10:24)
[2020-11-09 04:57] LABS: BASOPHILS # (AUTO) 0.1 (0.0-0.1); BASOPHILS % 0.5 % (0.0-1.0); EOSINOPHILS % 0.2 % (0.0-6.0); HEMATOCRIT 31.4 % (34.2-44.1); HEMOGLOBIN 9.7 g/dL (12.0-16.0); LYMPHOCYTES # (AUTO) 0.8 (1.0-3.2); LYMPHOCYTES % 7.8 % (18.0-39.1); MEAN CORPUSCULAR HEMOGLOBIN 25.7 pg (28-32); MEAN CORPUSCULAR HGB CONC 30.9 g/dL (31-35); MEAN CORPUSCULAR VOLUME 83.3 fL (81-99); MONOCYTES # (AUTO) 1.5 (0.2-0.8); NEUTROPHILS # (AUTO) 8.2 (2.1-6.9); PLATELET COUNT 127 x10e3/uL (140-360); RED BLOOD COUNT 3.77 x10e6/uL (3.6-5.1); RED CELL DISTRIBUTION WIDTH 16.7 % (11.7-14.4)
[2020-11-09] MEDS: ONDANSETRON HCL INJ 2MG/ML 2ML 2 MG/ML VIAL IV PRN ×4 (05:07→18:43)
[2020-11-09] MEDS: MORPHINE SULFATE INJ 4 MG/ML INJ 1ML IV PRN ×5 (05:07→18:44)
[2020-11-09 05:17] LABS: ALANINE AMINOTRANSFERASE 40 IU/L (0-55); ALBUMIN 1.8 g/dL (3.5-5.0); ALBUMIN/GLOBULIN RATIO 0.5 (0.8-2.0); ALKALINE PHOSPHATASE 179 IU/L (40-150); ANION GAP 11.9 mmol/L (8-16); BLOOD UREA NITROGEN 10 mg/dL (7-26); BUN/CREATININE RATIO 14 (6-25); CALCIUM 7.8 mg/dL (8.4-10.2); CARBON DIOXIDE 25 mmol/L (22-29); CHLORIDE 104 mmol/L (98-107); CREATININE, SERUM 0.71 mg/dL (0.57-1.11); EST GLOMERULAR FILTRATION RATE > 60 ML/MIN (60-); GLUCOSE 87 mg/dL (74-118); SODIUM 138 mmol/L (136-145)
[2020-11-09 05:25] LABS: POTASSIUM 2.9 mmol/L (3.5-5.1)
[2020-11-09] MEDS ORDERED: POTASSIUM CHLORIDE 20 MEQ TAB CR PO STA (05:30)
[2020-11-09 06:25] LABS: LYMPHOCYTES % (MANUAL) 12 % (19-48); MONOCYTES % (MANUAL) 5 % (3.4-9.0); MYELOCYTES % (MANUAL) 1 % (0-0); NEUTROPHILS % (MANUAL) 82 % (40-74); PLATELET ESTIMATE SLIGHTLY DECREASED; PLATELET MORPHOLOGY COMMENT NORMAL
[2020-11-09 06:26] LABS: ANISOCYTOSIS SLIGHT; RBC MORPHOLOGY COMMENT NORMAL
[2020-11-09] MEDS ORDERED: CEFTRIAXONE 2 GM/DEXT 100 ML 2 GM/100 ML ML IV SCH (14:00)
[2020-11-09] MEDS ORDERED: PREDNISONE 10 MG TAB PO PRN (14:00)
[2020-11-09] MEDS ORDERED: DOCUSATE SODIUM 100 MG CAP PO PRN (14:00)
[2020-11-09] MEDS: CEFTRIAXONE 1 GM in SODIUM CHLORIDE 0.9% 50ML 50 ML IV SCH (14:32)
[2020-11-09] MEDS: ACETAMINOPHEN 325 MG TAB PO PRN ×2 (14:32→21:07)
[2020-11-09] MEDS: HYDROXYCHLOROQUINE SULFATE 200 MG TAB PO SCH (18:43)
[2020-11-09] MEDS: DULOXETINE HCL 30 MG DELAYED RELEASE PO SCH (18:43)
[2020-11-09] MEDS: DOXAZOSIN MESYLATE 2 MG TAB PO SCH (20:59)
[2020-11-09] MEDS: TIZANIDINE HCL 4 MG TAB PO SCH (20:59)
[2020-11-10] VITALS (8 sets, daily range): BP systolic 113–151; BP diastolic 66–83
[2020-11-10] MEDS: MORPHINE SULFATE INJ 4 MG/ML INJ 1ML IV PRN ×2 (00:27→04:37)
[2020-11-10] MEDS: SODIUM CHLORIDE 0.9% 1000ML 1,000 ML IV SCH ×3 (03:34→20:41)
[2020-11-10] MEDS: LEVOTHYROXINE SODIUM 100 MCG TAB PO SCH (05:36)
[2020-11-10] MEDS: PANTOPRAZOLE SOD 40 MG TABEC PO SCH (08:28)
[2020-11-10] MEDS: DULOXETINE HCL 30 MG DELAYED RELEASE PO SCH ×2 (08:28→17:04)
[2020-11-10] MEDS: HYDROXYCHLOROQUINE SULFATE 200 MG TAB PO SCH ×2 (08:28→17:04)
[2020-11-10] MEDS ORDERED: ACETAMINOPHEN/CODEINE 300MG - 30MG TAB PO PRN ×2 (09:00→13:15)
[2020-11-10] MEDS ORDERED: ACETAMIN/BUTALBITAL/CAFFEINE TAB PO PRN (12:00)
[2020-11-10] MEDS: ACETAMIN/BUTALBITAL/CAFFEINE TAB PO PRN ×2 (12:20→20:40)
[2020-11-10] MEDS: ACETAMINOPHEN/CODEINE 300MG - 30MG TAB PO PRN ×3 (13:17→21:50)
[2020-11-10] MEDS: CEFTRIAXONE 1 GM in SODIUM CHLORIDE 0.9% 50ML 50 ML IV SCH (14:08)
[2020-11-10] MEDS: TIZANIDINE HCL 4 MG TAB PO SCH (20:43)
[2020-11-10] MEDS: DOXAZOSIN MESYLATE 2 MG TAB PO SCH (21:21)
[2020-11-11] VITALS: BP 111/71
[2020-11-11 04:00] VITALS: BP 139/75
[2020-11-11] MEDS: ACETAMINOPHEN/CODEINE 300MG - 30MG TAB PO PRN ×5 (04:32→21:19)
[2020-11-11] MEDS: SODIUM CHLORIDE 0.9% 1000ML 1,000 ML IV SCH ×3 (04:58→23:56)
[2020-11-11] MEDS: ACETAMIN/BUTALBITAL/CAFFEINE TAB PO PRN (05:15)
[2020-11-11] MEDS: LEVOTHYROXINE SODIUM 100 MCG TAB PO SCH (05:56)
[2020-11-11 06:20] LABS: BASOPHILS % 0.2 % (0.0-1.0); EOSINOPHILS % 0.1 % (0.0-6.0); HEMATOCRIT 28.1 % (34.2-44.1); HEMOGLOBIN 8.9 g/dL (12.0-16.0); LYMPHOCYTES # (AUTO) 1.2 (1.0-3.2); LYMPHOCYTES % 12.9 % (18.0-39.1); MEAN CORPUSCULAR HEMOGLOBIN 25.9 pg (28-32); MEAN CORPUSCULAR HGB CONC 31.7 g/dL (31-35); MEAN CORPUSCULAR VOLUME 81.7 fL (81-99); MONOCYTES # (AUTO) 0.9 (0.2-0.8); MONOCYTES % 9.5 % (4.4-11.3); NEUTROPHILS # (AUTO) 6.9 (2.1-6.9); NEUTROPHILS % 74.7 % (38.7-80.0); PLATELET COUNT 130 x10e3/uL (140-360); RED BLOOD COUNT 3.44 x10e6/uL (3.6-5.1); RED CELL DISTRIBUTION WIDTH 16.7 % (11.7-14.4)
[2020-11-11 06:37] LABS: ANION GAP 11.8 mmol/L (8-16); BLOOD UREA NITROGEN 9 mg/dL (7-26); BUN/CREATININE RATIO 12 (6-25); CALCIUM 7.9 mg/dL (8.4-10.2); CARBON DIOXIDE 25 mmol/L (22-29); CHLORIDE 105 mmol/L (98-107); CREATININE, SERUM 0.73 mg/dL (0.57-1.11); EST GLOMERULAR FILTRATION RATE > 60 ML/MIN (60-); GLUCOSE 120 mg/dL (74-118); SODIUM 139 mmol/L (136-145)
[2020-11-11 06:43] LABS: POTASSIUM 2.8 mmol/L (3.5-5.1)
[2020-11-11 07:54] VITALS: BP 106/71
[2020-11-11] MEDS: DULOXETINE HCL 30 MG DELAYED RELEASE PO SCH ×2 (08:23→17:23)
[2020-11-11] MEDS: PANTOPRAZOLE SOD 40 MG TABEC PO SCH (08:23)
[2020-11-11] MEDS: HYDROXYCHLOROQUINE SULFATE 200 MG TAB PO SCH ×2 (08:24→17:23)
[2020-11-11 08:55] VITALS: BP 106/71
[2020-11-11] MEDS ORDERED: POTASSIUM CHLORIDE 10MEQ/100ML 100 ML IV ONE ×2 (11:00→11:15)
[2020-11-11] MEDS ORDERED: POTASSIUM CHLORIDE 20 MEQ TAB CR PO ONE (11:00)
[2020-11-11] MEDS ORDERED: POTASSIUM CHLORIDE 10MEQ/100ML 200 ML IV ONE (12:00)
[2020-11-11] MEDS: CEFTRIAXONE 1 GM in SODIUM CHLORIDE 0.9% 50ML 50 ML IV SCH (15:01)
[2020-11-11 15:55] VITALS: BP 135/68
[2020-11-11 20:00] VITALS: BP_SYST 135; BP_DIAS 68; BP_DIAS 81
[2020-11-11] MEDS: TIZANIDINE HCL 4 MG TAB PO SCH (21:19)
[2020-11-11] MEDS: ZOLPIDEM TARTRATE 5 MG TAB PO PRN (21:19)
[2020-11-11] MEDS: DOXAZOSIN MESYLATE 2 MG TAB PO SCH (21:19)
[2020-11-12] VITALS: BP 130/80
[2020-11-12] MEDS: ACETAMIN/BUTALBITAL/CAFFEINE TAB PO PRN ×2 (00:13→07:45)
[2020-11-12 04:00] VITALS: BP 132/79
[2020-11-12] MEDS: LEVOTHYROXINE SODIUM 100 MCG TAB PO SCH (05:03)
[2020-11-12] MEDS: ACETAMINOPHEN/CODEINE 300MG - 30MG TAB PO PRN ×4 (05:04→19:43)
[2020-11-12 07:43] VITALS: BP 136/70
[2020-11-12] MEDS: SODIUM CHLORIDE 0.9% 1000ML 1,000 ML IV SCH ×2 (07:44→19:42)
[2020-11-12 08:04] VITALS: BP 136/70
[2020-11-12] MEDS ORDERED: FUROSEMIDE INJ 10 MG/ML 4 ML VIAL ONE (08:42)
[2020-11-12] MEDS: PANTOPRAZOLE SOD 40 MG TABEC PO SCH ×2 (09:00→10:11)
[2020-11-12] MEDS: HYDROXYCHLOROQUINE SULFATE 200 MG TAB PO SCH ×2 (09:00→10:10)
[2020-11-12] MEDS: DULOXETINE HCL 30 MG DELAYED RELEASE PO SCH ×2 (09:00→10:10)
[2020-11-12 12:11] VITALS: BP 108/65
[2020-11-12] MEDS: CEFTRIAXONE 1 GM in SODIUM CHLORIDE 0.9% 50ML 50 ML IV SCH (15:25)
[2020-11-12] MEDS: TIZANIDINE HCL 4 MG TAB PO SCH (19:42)
[2020-11-12 20:00] VITALS: BP_SYST 108; BP_SYST 123; BP_DIAS 65; BP_DIAS 70
[2020-11-12] MEDS: DOXAZOSIN MESYLATE 2 MG TAB PO SCH (20:59)
[2020-11-12] MEDS: ZOLPIDEM TARTRATE 5 MG TAB PO PRN (20:59)
[2020-11-13] VITALS (8 sets, daily range): BP systolic 109–140; BP diastolic 62–71
[2020-11-13] MEDS: SODIUM CHLORIDE 0.9% 1000ML 1,000 ML IV SCH ×3 (01:10→17:41)
[2020-11-13] MEDS: ACETAMINOPHEN/CODEINE 300MG - 30MG TAB PO PRN ×4 (01:11→15:00)
[2020-11-13] MEDS: LEVOTHYROXINE SODIUM 100 MCG TAB PO SCH (05:54)
[2020-11-13] MEDS: DULOXETINE HCL 30 MG DELAYED RELEASE PO SCH ×2 (08:24→17:31)
[2020-11-13] MEDS: HYDROXYCHLOROQUINE SULFATE 200 MG TAB PO SCH ×2 (08:24→17:00)
[2020-11-13] MEDS: ACETAMIN/BUTALBITAL/CAFFEINE TAB PO PRN (08:24)
[2020-11-13 12:08] LABS: BASOPHILS % 0.2 % (0.0-1.0); EOSINOPHILS % 0.4 % (0.0-6.0); HEMATOCRIT 30.5 % (34.2-44.1); HEMOGLOBIN 9.6 g/dL (12.0-16.0); LYMPHOCYTES # (AUTO) 1.2 (1.0-3.2); LYMPHOCYTES % 23.8 % (18.0-39.1); MEAN CORPUSCULAR HEMOGLOBIN 25.3 pg (28-32); MEAN CORPUSCULAR HGB CONC 31.5 g/dL (31-35); MEAN CORPUSCULAR VOLUME 80.5 fL (81-99); MONOCYTES # (AUTO) 0.6 (0.2-0.8); MONOCYTES % 11.2 % (4.4-11.3); NEUTROPHILS # (AUTO) 3.2 (2.1-6.9); NEUTROPHILS % 62.5 % (38.7-80.0); PLATELET COUNT 178 x10e3/uL (140-360); RED BLOOD COUNT 3.79 x10e6/uL (3.6-5.1); RED CELL DISTRIBUTION WIDTH 16.6 % (11.7-14.4)
[2020-11-13 12:35] LABS: ANION GAP 16.4 mmol/L (8-16); BLOOD UREA NITROGEN < 5 mg/dL (7-26); CALCIUM 8.1 mg/dL (8.4-10.2); CARBON DIOXIDE 30 mmol/L (22-29); CHLORIDE 100 mmol/L (98-107); CREATININE, SERUM 0.73 mg/dL (0.57-1.11); EST GLOMERULAR FILTRATION RATE > 60 ML/MIN (60-); GLUCOSE 81 mg/dL (74-118); SODIUM 144 mmol/L (136-145)
[2020-11-13 12:36] LABS: BUN/CREATININE RATIO 7 (6-25)
[2020-11-13 12:37] LABS: POTASSIUM 2.4 mmol/L (3.5-5.1)
[2020-11-13] MEDS ORDERED: POTASSIUM CHLORIDE 10MEQ/100ML 300 ML IV ONE (13:00)
[2020-11-13] MEDS ORDERED: POTASSIUM CHLORIDE 20 MEQ TAB CR PO ONE (13:30)
[2020-11-13] MEDS: CEFTRIAXONE 1 GM in SODIUM CHLORIDE 0.9% 50ML 50 ML IV SCH (14:15)
[2020-11-13] MEDS: ACETAMIN/BUTALBITAL/CAFFEINE TAB PO SCH ×2 (17:15→21:20)
[2020-11-13 17:55] LABS: BLOOD UREA NITROGEN < 5 mg/dL (7-26); CALCIUM 8.1 mg/dL (8.4-10.2); CARBON DIOXIDE 29 mmol/L (22-29); CHLORIDE 98 mmol/L (98-107); CREATININE, SERUM 0.75 mg/dL (0.57-1.11); EST GLOMERULAR FILTRATION RATE > 60 ML/MIN (60-); GLUCOSE 87 mg/dL (74-118); SODIUM 140 mmol/L (136-145)
[2020-11-13 18:16] LABS: BUN/CREATININE RATIO 7 (6-25)
[2020-11-13] MEDS ORDERED: POTASSIUM CHLORIDE 20 MEQ TAB CR PO STA (18:44)
[2020-11-13] MEDS ORDERED: POTASSIUM CHLORIDE 20MEQ/100ML 100 ML IV SCH ×2 (19:13→22:00)
[2020-11-13] MEDS: DOXAZOSIN MESYLATE 2 MG TAB PO SCH (21:20)
[2020-11-13] MEDS: AMITRIPTYLINE HCL 25 MG TAB PO SCH (21:20)
[2020-11-13] MEDS: TIZANIDINE HCL 4 MG TAB PO SCH (21:20)
[2020-11-14] VITALS (8 sets, daily range): BP systolic 112–145; BP diastolic 54–83
[2020-11-14] MEDS: SODIUM CHLORIDE 0.9% 1000ML 1,000 ML IV SCH ×3 (02:22→19:16)
[2020-11-14] MEDS: ACETAMINOPHEN/CODEINE 300MG - 30MG TAB PO PRN ×3 (02:22→18:25)
[2020-11-14 05:45] LABS: ANION GAP 14.1 mmol/L (8-16); BLOOD UREA NITROGEN < 5 mg/dL (7-26); CALCIUM 8.1 mg/dL (8.4-10.2); CARBON DIOXIDE 27 mmol/L (22-29); CHLORIDE 103 mmol/L (98-107); CREATININE, SERUM 0.77 mg/dL (0.57-1.11); EST GLOMERULAR FILTRATION RATE > 60 ML/MIN (60-); GLUCOSE 73 mg/dL (74-118); POTASSIUM 3.1 mmol/L (3.5-5.1); SODIUM 141 mmol/L (136-145)
[2020-11-14 05:47] LABS: BUN/CREATININE RATIO 6 (6-25)
[2020-11-14] MEDS: LEVOTHYROXINE SODIUM 100 MCG TAB PO SCH (06:07)
[2020-11-14] MEDS: ACETAMIN/BUTALBITAL/CAFFEINE TAB PO SCH ×3 (06:07→21:29)
[2020-11-14] MEDS: POTASSIUM CHLORIDE 20 MEQ TAB CR PO SCH ×2 (06:45→06:57)
[2020-11-14] MEDS: PANTOPRAZOLE SOD 40 MG TABEC PO SCH (09:00)
[2020-11-14] MEDS: HYDROXYCHLOROQUINE SULFATE 200 MG TAB PO SCH ×2 (09:00→18:23)
[2020-11-14] MEDS: DULOXETINE HCL 30 MG DELAYED RELEASE PO SCH ×2 (09:00→18:23)
[2020-11-14] MEDS: TIZANIDINE HCL 4 MG TAB PO SCH ×2 (09:27→20:25)
[2020-11-14] MEDS ORDERED: POTASSIUM CHLORIDE 20 MEQ TAB CR PO ONE ×2 (12:00→21:15)
[2020-11-14] MEDS: CYCLOBENZAPRINE HCL 10 MG TAB PO SCH ×2 (14:00→21:30)
[2020-11-14] MEDS ORDERED: CYCLOBENZAPRINE HCL 10 MG TAB PO SCH (14:00)
[2020-11-14] MEDS: CEFTRIAXONE 1 GM in SODIUM CHLORIDE 0.9% 50ML 50 ML IV SCH (14:15)
[2020-11-14] MEDS: DOXAZOSIN MESYLATE 2 MG TAB PO SCH (20:25)
[2020-11-14] MEDS: AMITRIPTYLINE HCL 25 MG TAB PO SCH (20:25)
[2020-11-15] VITALS: BP 138/92
[2020-11-15] MEDS: ACETAMINOPHEN/CODEINE 300MG - 30MG TAB PO PRN (03:10)
[2020-11-15] MEDS: SODIUM CHLORIDE 0.9% 1000ML 1,000 ML IV SCH (03:10)
[2020-11-15 04:00] VITALS: BP 139/84
[2020-11-15] MEDS: ACETAMIN/BUTALBITAL/CAFFEINE TAB PO SCH (05:21)
[2020-11-15] MEDS: CYCLOBENZAPRINE HCL 10 MG TAB PO SCH (05:21)
[2020-11-15] MEDS: LEVOTHYROXINE SODIUM 100 MCG TAB PO SCH (05:21)
[2020-11-15 08:07] VITALS: BP 137/73
[2020-11-15] MEDS: DULOXETINE HCL 30 MG DELAYED RELEASE PO SCH (09:01)
[2020-11-15] MEDS: POTASSIUM CHLORIDE 20 MEQ TAB CR PO SCH (09:02)
[2020-11-15] MEDS: TIZANIDINE HCL 4 MG TAB PO SCH (09:02)
[2020-11-15] MEDS: PANTOPRAZOLE SOD 40 MG TABEC PO SCH (09:02)
[2020-11-15] MEDS: HYDROXYCHLOROQUINE SULFATE 200 MG TAB PO SCH (09:02)
[2020-11-15 09:16] VITALS: BP 137/73
[2020-11-15] MEDS ORDERED: KEFLEX125 MG/5 M PO (09:56)
[2020-11-15] MEDS ORDERED: CYCLOBENZAPRINE10 MG PO (09:56)
[2020-11-15] MEDS ORDERED: ZOFRAN4 MG PO (09:56)
[2020-11-15] MEDS ORDERED: COLACE100 MG PO (09:56)
[2020-11-15] MEDS ORDERED: KLOR-CON M2020 MEQ PO (09:56)
[2020-11-15] MEDS ORDERED: AMITRIPTYLINE H25 MG PO (09:56)
[2020-11-15 12:16] VITALS: BP 128/80
[2020-11-15] MEDS ORDERED: ONDANSETRON HCL 4 MG ORAL DISINTEGRATING TAB PO PRN (12:45)
== END 2020-11-15 12:57 | disposition home or self-care (01) | DRG 690 ==
LOC: FSED 20:35 → ERHOLD 23:03 → MED/SURG 11-09 00:21 → OBSVTOIN 11-10 09:46
PROVIDERS: ADMIT Internal Medicine; ATTEND Internal Medicine
DX: N13.6 Pyonephrosis (principal); D69.6 Thrombocytopenia, unspecified; Z87.442 Personal history of urinary calculi; M32.9 Systemic lupus erythematosus, unspecified; D64.9 Anemia, unspecified; N32.81 Overactive bladder; E66.9 Obesity, unspecified; Z68.28 Body mass index [BMI] 28.0-28.9, adult; N81.10 Cystocele, unspecified; N39.41 Urge incontinence; R31.0 Gross hematuria; E87.6 Hypokalemia; E03.9 Hypothyroidism, unspecified; E83.51 Hypocalcemia; Z20.822 Contact with and (suspected) exposure to COVID-19
CPT/HCPCS: 36415; 74177; 76700; 78708; 80048; 80053; 80076; 83735; 84132; 85025; 96374; 96376; 99284; A9562; G0378; J0696; J1940; J2270; J2405; J3480; J7030; Q9967; U0002

== ENCOUNTER 2020-11-16 15:39 | Inpatient (IN) | payer OTHER ==
[~2020-11-16] VITALS: Ht 177.8 cm; Wt 90.7 kg
[~2020-11-16 15:39] MED LIST changes: +AMITRIPTYLINE H25 MG PO; +CELECOXIB200 MG PO; +COLACE100 MG PO; +CYCLOBENZAPRINE10 MG PO; +KEFLEX125 MG/5 M PO; +KLOR-CON M2020 MEQ PO; +ZOFRAN4 MG PO
[2020-11-16] MEDS ORDERED: SODIUM CHLORIDE 0.9% 1000ML 1,000 ML IV STA (16:29)
[2020-11-16] MEDS ORDERED: PIPERACILLIN/TAZOBACTAM 4.5 GM in SODIUM CHLORIDE 0.9% 100 ML IV STA (16:44)
[2020-11-16 16:54] LABS: BASOPHILS # (AUTO) 0.1 (0.0-0.1); BASOPHILS % 0.8 % (0.0-1.0); EOSINOPHILS # (AUTO) 0.1 (0.0-0.4); EOSINOPHILS % 0.8 % (0.0-6.0); HEMATOCRIT 37.5 % (34.2-44.1); HEMOGLOBIN 11.7 g/dL (12.0-16.0); LYMPHOCYTES # (AUTO) 1.5 (1.0-3.2); MEAN CORPUSCULAR HEMOGLOBIN 25.2 pg (28-32); MEAN CORPUSCULAR HGB CONC 31.2 g/dL (31-35); MEAN CORPUSCULAR VOLUME 80.8 fL (81-99); MONOCYTES # (AUTO) 0.6 (0.2-0.8); MONOCYTES % 7.8 % (4.4-11.3); NEUTROPHILS # (AUTO) 5.4 (2.1-6.9); NEUTROPHILS % 69.4 % (38.7-80.0); PLATELET COUNT 533 x10e3/uL (140-360); RED BLOOD COUNT 4.64 x10e6/uL (3.6-5.1); RED CELL DISTRIBUTION WIDTH 17.1 % (11.7-14.4)
[2020-11-16] MEDS ORDERED: SODIUM CHLORIDE 0.9% 1000ML 1,000 ML IV SCH (17:00)
[2020-11-16] MEDS ORDERED: MORPHINE SULFATE INJ 2 MG/ML SYR IV PRN (17:00)
[2020-11-16 17:07] LABS: ALANINE AMINOTRANSFERASE 32 IU/L (0-55); ALBUMIN 2.6 g/dL (3.5-5.0); ALBUMIN/GLOBULIN RATIO 0.5 (0.8-2.0); ALKALINE PHOSPHATASE 202 IU/L (40-150); ANION GAP 18.3 mmol/L (8-16); BLOOD UREA NITROGEN 5 mg/dL (7-26); BUN/CREATININE RATIO 6 (6-25); CALCIUM 9.2 mg/dL (8.4-10.2); CARBON DIOXIDE 23 mmol/L (22-29); CHLORIDE 103 mmol/L (98-107); CREATININE, SERUM 0.81 mg/dL (0.57-1.11); EST GLOMERULAR FILTRATION RATE > 60 ML/MIN (60-); GLUCOSE 95 mg/dL (74-118); POTASSIUM 4.3 mmol/L (3.5-5.1); SODIUM 140 mmol/L (136-145)
[2020-11-16 17:40] LABS: CLARITY,URINE SL CLOUDY (CLEAR); COLOR,URINE STRAW (YELLOW); KETONES,URINE NEGATIVE (NEGATIVE); LEUKOCYTE ESTERASE ,URINE NEGATIVE (NEGATIVE); NITRITE,URINE NEGATIVE (NEGATIVE); PROTEIN,URINE DIPSTICK NEGATIVE (NEGATIVE); URINE UROBILINOGEN 0.2 mg/dL (0.2 - 1)
[2020-11-16 17:52] LABS: BACTERIA,URINE MODERATE /HPF; EPITHELIAL CELLS,URINE MODERATE /LPF; RBC,URINE 0-5 /HPF (0-5)
[2020-11-16] MEDS: MORPHINE SULFATE INJ 4 MG/ML INJ 1ML IV PRN ×3 (17:52→23:12)
[2020-11-16] MEDS: ONDANSETRON HCL INJ 2MG/ML 2ML 2 MG/ML VIAL IV PRN ×2 (17:53→22:00)
[2020-11-16] MEDS ORDERED: ACETAMINOPHEN 325 MG TAB PO PRN (20:00)
[2020-11-16 21:18] VITALS: BP 118/77
[2020-11-16] MEDS: SODIUM CHLORIDE 0.9% 1000ML 1,000 ML IV SCH ×2 (21:35→23:40)
[2020-11-16 23:01] VITALS: BP 118/77
[2020-11-16 23:06] VITALS: BP 118/77
[2020-11-17] VITALS (7 sets, daily range): BP systolic 120–130; BP diastolic 68–83
[2020-11-17] MEDS: MORPHINE SULFATE INJ 4 MG/ML INJ 1ML IV PRN ×5 (02:00→21:00)
[2020-11-17] MEDS: ONDANSETRON HCL INJ 2MG/ML 2ML 2 MG/ML VIAL IV PRN ×5 (02:00→21:19)
[2020-11-17] MEDS ORDERED: PIPERACILLIN/TAZOBACTAM 4.5 GM in SODIUM CHLORIDE 0.9% 100 ML IV SCH (06:00)
[2020-11-17] MEDS: SODIUM CHLORIDE 0.9% 1000ML 1,000 ML IV SCH ×3 (06:06→19:54)
[2020-11-17 06:45] LABS: BASOPHILS # (AUTO) 0.1 (0.0-0.1); BASOPHILS % 1.1 % (0.0-1.0); EOSINOPHILS # (AUTO) 0.1 (0.0-0.4); EOSINOPHILS % 1.6 % (0.0-6.0); HEMATOCRIT 33.6 % (34.2-44.1); HEMOGLOBIN 10.2 g/dL (12.0-16.0); LYMPHOCYTES # (AUTO) 1.3 (1.0-3.2); LYMPHOCYTES % 29.6 % (18.0-39.1); MEAN CORPUSCULAR HEMOGLOBIN 25.4 pg (28-32); MEAN CORPUSCULAR HGB CONC 30.4 g/dL (31-35); MEAN CORPUSCULAR VOLUME 83.6 fL (81-99); MONOCYTES # (AUTO) 0.4 (0.2-0.8); MONOCYTES % 9.6 % (4.4-11.3); NEUTROPHILS # (AUTO) 2.5 (2.1-6.9); NEUTROPHILS % 55.7 % (38.7-80.0); PLATELET COUNT 480 x10e3/uL (140-360); RED BLOOD COUNT 4.02 x10e6/uL (3.6-5.1)
[2020-11-17] MEDS ORDERED: NON-FORMULARY MEDICATION (Ondansetron Hcl* (Zofran*) 4 MG) PO PRN (06:45)
[2020-11-17] MEDS ORDERED: DOCUSATE SODIUM 100 MG CAP PO PRN (06:45)
[2020-11-17 07:03] LABS: ANION GAP 14.4 mmol/L (8-16); BLOOD UREA NITROGEN < 5 mg/dL (7-26); CALCIUM 8.4 mg/dL (8.4-10.2); CARBON DIOXIDE 24 mmol/L (22-29); CHLORIDE 107 mmol/L (98-107); CREATININE, SERUM 0.73 mg/dL (0.57-1.11); EST GLOMERULAR FILTRATION RATE > 60 ML/MIN (60-); GLUCOSE 87 mg/dL (74-118); SODIUM 142 mmol/L (136-145)
[2020-11-17 07:05] LABS: BUN/CREATININE RATIO 7 (6-25)
[2020-11-17 07:06] LABS: POTASSIUM 3.4 mmol/L (3.5-5.1)
[2020-11-17] MEDS ORDERED: PREDNISONE 10 MG TAB PO SCH (07:15)
[2020-11-17] MEDS: PIPERACILLIN/TAZOBACTAM 4.5 GM in SODIUM CHLORIDE 0.9% 100 ML IV SCH ×2 (09:32→20:00)
[2020-11-17] MEDS: PANTOPRAZOLE SOD 40 MG TABEC PO SCH (09:37)
[2020-11-17] MEDS: HYDROXYCHLOROQUINE SULFATE 200 MG TAB PO SCH ×2 (09:37→17:00)
[2020-11-17] MEDS: DULOXETINE HCL 30 MG DELAYED RELEASE PO SCH ×2 (09:37→17:00)
[2020-11-17] MEDS: ACETAMIN/BUTALBITAL/CAFFEINE TAB PO PRN ×2 (09:45→19:35)
[2020-11-17] MEDS: BUPRENORPHINE HCL 750 MCG PO SCH ×2 (09:50→17:00)
[2020-11-17] MEDS: CYCLOBENZAPRINE HCL 10 MG TAB PO SCH ×2 (14:42→22:00)
[2020-11-17] MEDS ORDERED: ZOLPIDEM TARTRATE 5 MG TAB PO PRN (21:00)
[2020-11-17] MEDS: AMITRIPTYLINE HCL 25 MG TAB PO SCH (21:00)
[2020-11-17] MEDS: DOXAZOSIN MESYLATE 2 MG TAB PO SCH (21:00)
[2020-11-17] MEDS: TIZANIDINE HCL 4 MG TAB PO SCH (21:00)
[2020-11-18] VITALS (8 sets, daily range): BP systolic 105–130; BP diastolic 64–73
[2020-11-18] MEDS: ACETAMINOPHEN/CODEINE 300MG - 30MG TAB PO PRN (00:09)
[2020-11-18] MEDS: SODIUM CHLORIDE 0.9% 1000ML 1,000 ML IV SCH ×4 (02:20→22:20)
[2020-11-18 05:20] LABS: BASOPHILS # (AUTO) 0.1 (0.0-0.1); BASOPHILS % 1.7 % (0.0-1.0); EOSINOPHILS # (AUTO) 0.1 (0.0-0.4); EOSINOPHILS % 1.2 % (0.0-6.0); HEMATOCRIT 34.1 % (34.2-44.1); HEMOGLOBIN 10.4 g/dL (12.0-16.0); LYMPHOCYTES # (AUTO) 1.6 (1.0-3.2); LYMPHOCYTES % 37.7 % (18.0-39.1); MEAN CORPUSCULAR HEMOGLOBIN 25.4 pg (28-32); MEAN CORPUSCULAR HGB CONC 30.5 g/dL (31-35); MEAN CORPUSCULAR VOLUME 83.4 fL (81-99); MONOCYTES # (AUTO) 0.4 (0.2-0.8); MONOCYTES % 10.7 % (4.4-11.3); NEUTROPHILS # (AUTO) 1.9 (2.1-6.9); PLATELET COUNT 545 x10e3/uL (140-360); RED BLOOD COUNT 4.09 x10e6/uL (3.6-5.1); RED CELL DISTRIBUTION WIDTH 16.7 % (11.7-14.4)
[2020-11-18 05:43] LABS: ANION GAP 13.6 mmol/L (8-16); CALCIUM 8.7 mg/dL (8.4-10.2); CARBON DIOXIDE 25 mmol/L (22-29); CHLORIDE 107 mmol/L (98-107); CREATININE, SERUM 0.82 mg/dL (0.57-1.11); EST GLOMERULAR FILTRATION RATE > 60 ML/MIN (60-); GLUCOSE 81 mg/dL (74-118); POTASSIUM 3.6 mmol/L (3.5-5.1); SODIUM 142 mmol/L (136-145)
[2020-11-18 05:49] LABS: BUN/CREATININE RATIO 6 (6-25)
[2020-11-18] MEDS: LEVOTHYROXINE SODIUM 125 MCG TAB PO SCH (06:00)
[2020-11-18] MEDS: CYCLOBENZAPRINE HCL 10 MG TAB PO SCH ×3 (06:00→21:39)
[2020-11-18] MEDS: ONDANSETRON HCL INJ 2MG/ML 2ML 2 MG/ML VIAL IV PRN ×5 (06:01→22:46)
[2020-11-18] MEDS: MORPHINE SULFATE INJ 4 MG/ML INJ 1ML IV PRN ×5 (06:01→22:46)
[2020-11-18 06:12] LABS: BLOOD UREA NITROGEN < 5 mg/dL (7-26)
[2020-11-18 07:23] LABS: EOSINOPHILS % (MANUAL) 1 % (0-7); LYMPHOCYTES % (MANUAL) 38 % (19-48); MONOCYTES % (MANUAL) 7 % (3.4-9.0); NEUTROPHILS % (MANUAL) 48 % (40-74); PLATELET ESTIMATE MODERATELY INCREASED
[2020-11-18 07:24] LABS: PLATELET MORPHOLOGY COMMENT FEW LARGE; RBC MORPHOLOGY COMMENT NORMAL
[2020-11-18] MEDS: BUPRENORPHINE HCL 750 MCG PO SCH ×2 (09:00→17:00)
[2020-11-18] MEDS: HYDROXYCHLOROQUINE SULFATE 200 MG TAB PO SCH ×2 (09:38→16:50)
[2020-11-18] MEDS: PIPERACILLIN/TAZOBACTAM 4.5 GM in SODIUM CHLORIDE 0.9% 100 ML IV SCH ×2 (09:38→20:24)
[2020-11-18] MEDS: DULOXETINE HCL 30 MG DELAYED RELEASE PO SCH ×2 (09:38→16:50)
[2020-11-18] MEDS: PANTOPRAZOLE SOD 40 MG TABEC PO SCH (09:38)
[2020-11-18] MEDS ORDERED: KETOROLAC TROMETHAMINE 30 MG/ML VIAL IV PRN (18:00)
[2020-11-18] MEDS ORDERED: PROCHLORPERAZINE MALEATE TAB 10 MG TAB PO PRN (18:00)
[2020-11-18] MEDS ORDERED: MAGNESIUM SULF 1GRAM/DEXTROSE 100 ML IV ONE (18:30)
[2020-11-18] MEDS ORDERED: METHYLPREDNISOLONE SOD SUCC 125 MG/2ML VIAL IV ONE (18:30)
[2020-11-18] MEDS ORDERED: PIPERACILLIN/TAZO 4.5 GM 100 ML IV ONE (20:23)
[2020-11-18] MEDS: DOXAZOSIN MESYLATE 2 MG TAB PO SCH (21:37)
[2020-11-18] MEDS: VALPROATE SOD INJ 500 MG in SODIUM CHLORIDE 0.9% 100 ML 100 ML IV SCH (21:37)
[2020-11-18] MEDS: AMITRIPTYLINE HCL 25 MG TAB PO SCH (21:37)
[2020-11-18] MEDS: TIZANIDINE HCL 4 MG TAB PO SCH (21:39)
[2020-11-19] VITALS (7 sets, daily range): BP systolic 101–123; BP diastolic 56–76
[2020-11-19] MEDS: SODIUM CHLORIDE 0.9% 1000ML 1,000 ML IV SCH (05:36)
[2020-11-19] MEDS: CYCLOBENZAPRINE HCL 10 MG TAB PO SCH ×3 (05:39→21:29)
[2020-11-19] MEDS: LEVOTHYROXINE SODIUM 125 MCG TAB PO SCH (05:40)
[2020-11-19 05:57] LABS: BASOPHILS % 1.1 % (0.0-1.0); HEMATOCRIT 33.8 % (34.2-44.1); HEMOGLOBIN 10.3 g/dL (12.0-16.0); LYMPHOCYTES # (AUTO) 0.7 (1.0-3.2); LYMPHOCYTES % 23.8 % (18.0-39.1); MEAN CORPUSCULAR HEMOGLOBIN 25.2 pg (28-32); MEAN CORPUSCULAR HGB CONC 30.5 g/dL (31-35); MEAN CORPUSCULAR VOLUME 82.8 fL (81-99); MONOCYTES # (AUTO) 0.1 (0.2-0.8); MONOCYTES % 2.8 % (4.4-11.3); NEUTROPHILS % 71.2 % (38.7-80.0); PLATELET COUNT 657 x10e3/uL (140-360); RED BLOOD COUNT 4.08 x10e6/uL (3.6-5.1); RED CELL DISTRIBUTION WIDTH 16.4 % (11.7-14.4)
[2020-11-19 06:27] LABS: ALANINE AMINOTRANSFERASE 20 IU/L (0-55); ALBUMIN 2.5 g/dL (3.5-5.0); ALBUMIN/GLOBULIN RATIO 0.6 (0.8-2.0); ALKALINE PHOSPHATASE 137 IU/L (40-150); ANION GAP 14.5 mmol/L (8-16); BLOOD UREA NITROGEN 5 mg/dL (7-26); BUN/CREATININE RATIO 6 (6-25); CALCIUM 8.7 mg/dL (8.4-10.2); CARBON DIOXIDE 26 mmol/L (22-29); CHLORIDE 104 mmol/L (98-107); CREATININE, SERUM 0.79 mg/dL (0.57-1.11); EST GLOMERULAR FILTRATION RATE > 60 ML/MIN (60-); GLUCOSE 122 mg/dL (74-118); MAGNESIUM 2.1 MG/DL (1.3-2.1); SODIUM 140 mmol/L (136-145)
[2020-11-19 06:30] LABS: POTASSIUM 4.5 mmol/L (3.5-5.1)
[2020-11-19] MEDS: PIPERACILLIN/TAZOBACTAM 4.5 GM in SODIUM CHLORIDE 0.9% 100 ML IV SCH ×2 (08:00→20:12)
[2020-11-19] MEDS: PANTOPRAZOLE SOD 40 MG TABEC PO SCH (09:00)
[2020-11-19] MEDS: DULOXETINE HCL 30 MG DELAYED RELEASE PO SCH ×2 (09:00→17:00)
[2020-11-19] MEDS: BUPRENORPHINE HCL 750 MCG PO SCH ×2 (09:00→17:00)
[2020-11-19] MEDS: HYDROXYCHLOROQUINE SULFATE 200 MG TAB PO SCH ×2 (09:00→17:00)
[2020-11-19] MEDS: AMLODIPINE BESYLATE 5 MG TAB PO SCH ×2 (09:00→17:00)
[2020-11-19] MEDS: ONDANSETRON HCL INJ 2MG/ML 2ML 2 MG/ML VIAL IV PRN ×2 (09:05→17:45)
[2020-11-19] MEDS: MORPHINE SULFATE INJ 4 MG/ML INJ 1ML IV PRN ×2 (09:05→17:45)
[2020-11-19] MEDS: VALPROATE SOD INJ 500 MG in SODIUM CHLORIDE 0.9% 100 ML 100 ML IV SCH ×2 (10:57→21:29)
[2020-11-19] MEDS: PREDNISONE 10 MG TAB PO PRN (10:57)
[2020-11-19] MEDS: DOXAZOSIN MESYLATE 2 MG TAB PO SCH (21:00)
[2020-11-19] MEDS: TIZANIDINE HCL 4 MG TAB PO SCH (21:29)
[2020-11-19] MEDS: AMITRIPTYLINE HCL 25 MG TAB PO SCH (21:29)
[2020-11-20 00:33] VITALS: BP 116/75
[2020-11-20 04:00] VITALS: BP 117/77
[2020-11-20] MEDS: LEVOTHYROXINE SODIUM 125 MCG TAB PO SCH (05:34)
[2020-11-20] MEDS: CYCLOBENZAPRINE HCL 10 MG TAB PO SCH (05:34)
[2020-11-20] MEDS: ACETAMINOPHEN/CODEINE 300MG - 30MG TAB PO PRN (05:51)
[2020-11-20 06:40] LABS: BASOPHILS # (AUTO) 0.1 (0.0-0.1); BASOPHILS % 1.8 % (0.0-1.0); EOSINOPHILS % 0.8 % (0.0-6.0); HEMATOCRIT 34.6 % (34.2-44.1); HEMOGLOBIN 10.3 g/dL (12.0-16.0); LYMPHOCYTES # (AUTO) 1.9 (1.0-3.2); LYMPHOCYTES % 37.4 % (18.0-39.1); MEAN CORPUSCULAR HEMOGLOBIN 25.6 pg (28-32); MEAN CORPUSCULAR HGB CONC 29.8 g/dL (31-35); MEAN CORPUSCULAR VOLUME 86.1 fL (81-99); MONOCYTES # (AUTO) 0.4 (0.2-0.8); NEUTROPHILS # (AUTO) 2.6 (2.1-6.9); NEUTROPHILS % 51.4 % (38.7-80.0); PLATELET COUNT 724 x10e3/uL (140-360); RED BLOOD COUNT 4.02 x10e6/uL (3.6-5.1); RED CELL DISTRIBUTION WIDTH 16.9 % (11.7-14.4)
[2020-11-20 06:57] LABS: ANION GAP 13.6 mmol/L (8-16); BLOOD UREA NITROGEN 10 mg/dL (7-26); BUN/CREATININE RATIO 12 (6-25); CALCIUM 8.2 mg/dL (8.4-10.2); CARBON DIOXIDE 25 mmol/L (22-29); CHLORIDE 106 mmol/L (98-107); CREATININE, SERUM 0.83 mg/dL (0.57-1.11); EST GLOMERULAR FILTRATION RATE > 60 ML/MIN (60-); GLUCOSE 107 mg/dL (74-118); POTASSIUM 3.6 mmol/L (3.5-5.1); SODIUM 141 mmol/L (136-145)
[2020-11-20 08:00] VITALS: BP 117/77
[2020-11-20] MEDS: PIPERACILLIN/TAZOBACTAM 4.5 GM in SODIUM CHLORIDE 0.9% 100 ML IV SCH (08:39)
[2020-11-20 08:41] VITALS: BP 126/89
[2020-11-20] MEDS: DULOXETINE HCL 30 MG DELAYED RELEASE PO SCH (08:41)
[2020-11-20] MEDS: PANTOPRAZOLE SOD 40 MG TABEC PO SCH (08:41)
[2020-11-20] MEDS: HYDROXYCHLOROQUINE SULFATE 200 MG TAB PO SCH (08:41)
[2020-11-20] MEDS: AMLODIPINE BESYLATE 5 MG TAB PO SCH (08:41)
[2020-11-20] MEDS ORDERED: TYLENOL # 31 EA PO (10:29)
[2020-11-20] MEDS ORDERED: NORVASC5 MG PO (10:29)
== END 2020-11-20 11:52 | disposition home or self-care (01) | DRG 546 ==
LOC: ER 16:40 → ERHOLD 16:47 → MED/SURG3 20:17 → OBSVTOIN 11-18 12:53
PROVIDERS: ADMIT Internal Medicine; ATTEND Internal Medicine
DX: M32.19 Other organ or system involvement in systemic lupus erythematosus (principal); N10 Acute pyelonephritis; M35.1 Other overlap syndromes; G43.909 Migraine, unspecified, not intractable, without status migrainosus; R00.0 Tachycardia, unspecified; E03.9 Hypothyroidism, unspecified; M32.9 Systemic lupus erythematosus, unspecified; N20.0 Calculus of kidney; Z20.822 Contact with and (suspected) exposure to COVID-19; D64.9 Anemia, unspecified; E66.9 Obesity, unspecified; Z68.28 Body mass index [BMI] 28.0-28.9, adult; N32.81 Overactive bladder; R32 Unspecified urinary incontinence; N81.10 Cystocele, unspecified; N18.9 Chronic kidney disease, unspecified
CPT/HCPCS: 36415; 70450; 70551; 80048; 80053; 81001; 83605; 83735; 84702; 85025; 85651; 86160; 86162; 86225; 87040; 87086; 93005; 96361; 96367; 96375; 96376; 99284; G0378; J2270; J2405; J2543; J2930; J3475; J7030; J7050; J7512; U0002

== ENCOUNTER → 2021-03-24 | Outpatient (CLI) | payer OTHER ==
[~2021-03-24] MED LIST changes: +NORVASC5 MG PO; +TYLENOL # 31 EA PO
== END ==
LOC: US 08:51
PROVIDERS: ATTEND Internal Medicine Gastroenterology
DX: K29.70 Gastritis, unspecified, without bleeding (principal); K59.09 Other constipation; R14.0 Abdominal distension (gaseous); R10.10 Upper abdominal pain, unspecified
CPT/HCPCS: 76700

== ENCOUNTER 2021-11-18 23:15 | Inpatient (IN) | payer OTHER ==
[~2021-11-18] VITALS: Ht 177.8 cm; Wt 87.7 kg
[2021-11-19] MEDS ORDERED: ONDANSETRON HCL INJ 2MG/ML 2ML 2 MG/ML VIAL IV STA (00:06)
[2021-11-19] MEDS ORDERED: KETOROLAC TROMETHAMINE 30 MG/ML VIAL IV STA (00:39)
[2021-11-19] MEDS ORDERED: ONDANSETRON HCL INJ 2MG/ML 2ML 2 MG/ML VIAL ONE (00:45)
[2021-11-19] MEDS ORDERED: KETOROLAC TROMETHAMINE 30 MG/ML VIAL ONE (00:57)
[2021-11-19] MEDS ORDERED: ACETAMINOPHEN 325 MG TAB PO STA (01:42)
[2021-11-19] MEDS ORDERED: SODIUM CHLORIDE 0.9% 250ML 250 ML IV ONE (01:45)
[2021-11-19] MEDS ORDERED: SODIUM CHLORIDE FLUSH 10 ML SYR INJ PRN (01:45)
[2021-11-19] MEDS ORDERED: SULFASALAZINE500 MG PO (04:42)
[2021-11-19] MEDS ORDERED: CIMZIA400 MG IM (04:42)
[2021-11-19 04:45] VITALS: BP 107/53
[2021-11-19] MEDS ORDERED: ACETAMINOPHEN 325 MG TAB ONE (04:53)
[2021-11-19] MEDS: ONDANSETRON HCL INJ 2MG/ML 2ML 2 MG/ML VIAL IV PRN ×2 (05:05→09:38)
[2021-11-19] MEDS: Morphine 4mg Syringe 4 MG/ML INJ IV PRN ×5 (05:05→21:47)
[2021-11-19 07:55] VITALS: BP 108/63
[2021-11-19 08:30] VITALS: BP 108/63
[2021-11-19 11:21] VITALS: BP 110/57
[2021-11-19] MEDS ORDERED: CERTOLIZUMAB PEGOL IM SCH (14:30)
[2021-11-19 15:45] VITALS: BP 109/67
[2021-11-19] MEDS: SULFASALAZINE 500 MG TAB PO SCH (16:13)
[2021-11-19] MEDS: PANTOPRAZOLE SOD 40 MG TABEC PO SCH (16:34)
[2021-11-19] MEDS: BELBUCA PO SCH (16:34)
[2021-11-19] MEDS: DULOXETINE HCL 30 MG DELAYED RELEASE PO SCH (16:34)
[2021-11-19] MEDS: HYDROXYCHLOROQUINE SULFATE 200 MG TAB PO SCH (16:34)
[2021-11-19 17:14] LABS: BASOPHILS # (AUTO) 0.1 (0.0-0.1); BASOPHILS % 1.8 % (0.0-1.0); EOSINOPHILS # (AUTO) 0.1 (0.0-0.4); EOSINOPHILS % 1.8 % (0.0-6.0); HEMATOCRIT 27.5 % (34.2-44.1); HEMOGLOBIN 7.7 g/dL (12.0-16.0); LYMPHOCYTES # (AUTO) 1.9 (1.0-3.2); LYMPHOCYTES % 26.5 % (18.0-39.1); MEAN CORPUSCULAR HEMOGLOBIN 21.4 pg (28-32); MEAN CORPUSCULAR VOLUME 76.6 fL (81-99); MONOCYTES # (AUTO) 0.9 (0.2-0.8); MONOCYTES % 11.9 % (4.4-11.3); NEUTROPHILS # (AUTO) 4.2 (2.1-6.9); NEUTROPHILS % 56.9 % (38.7-80.0); PLATELET COUNT 393 x10e3/uL (140-360); RED BLOOD COUNT 3.59 x10e6/uL (3.6-5.1); RED CELL DISTRIBUTION WIDTH 18.5 % (11.7-14.4)
[2021-11-19 17:30] LABS: % IRON SATURATION 3 % (15-50); IRON 14 ug/dL (50-170); TOTAL IRON BINDING CAPACITY 455 ug/dL (261-478); TRANSFERRIN 325 mg/dL (180-382)
[2021-11-19 17:55] LABS: FERRITIN 7.78 ng/mL (4.63-204.00); FREE THYROXINE INDEX 3.0379842 (1.4-3.8); THYROID STIMULATING HORMONE 9.471 uIU/mL (0.350-4.940)
[2021-11-19 18:02] LABS: ALBUMIN 2.9 g/dL (3.5-5.0); ANION GAP 14.6 mmol/L (8-16); CALCIUM 8.4 mg/dL (8.4-10.2); CREATININE, SERUM 0.73 mg/dL (0.57-1.11); POTASSIUM 3.6 mmol/L (3.5-5.1)
[2021-11-19 20:00] VITALS: BP 111/68
[2021-11-19] MEDS ORDERED: TIZANIDINE HCL 4 MG TAB PO SCH (21:00)
[2021-11-19] MEDS ORDERED: DOXAZOSIN MESYLATE 2 MG TAB PO SCH (21:00)
[2021-11-19] MEDS ORDERED: AMITRIPTYLINE HCL 25 MG TAB PO SCH (21:00)
[2021-11-20] VITALS (8 sets, daily range): BP systolic 90–127; BP diastolic 55–97
[2021-11-20] MEDS: Morphine 4mg Syringe 4 MG/ML INJ IV PRN ×3 (05:27→15:04)
[2021-11-20] MEDS ORDERED: LEVOTHYROXINE SODIUM 75 MCG TAB PO SCH (06:00)
[2021-11-20 07:10] LABS: BASOPHILS # (AUTO) 0.1 (0.0-0.1); BASOPHILS % 1.7 % (0.0-1.0); EOSINOPHILS # (AUTO) 0.1 (0.0-0.4); EOSINOPHILS % 1.7 % (0.0-6.0); HEMATOCRIT 26.4 % (34.2-44.1); HEMOGLOBIN 7.3 g/dL (12.0-16.0); LYMPHOCYTES % 30.4 % (18.0-39.1); MEAN CORPUSCULAR HEMOGLOBIN 20.9 pg (28-32); MEAN CORPUSCULAR HGB CONC 27.7 g/dL (31-35); MEAN CORPUSCULAR VOLUME 75.4 fL (81-99); MONOCYTES # (AUTO) 0.7 (0.2-0.8); MONOCYTES % 11.1 % (4.4-11.3); NEUTROPHILS # (AUTO) 3.6 (2.1-6.9); PLATELET COUNT 380 x10e3/uL (140-360); RED CELL DISTRIBUTION WIDTH 18.6 % (11.7-14.4)
[2021-11-20] MEDS: PANTOPRAZOLE SOD 40 MG TABEC PO SCH ×2 (07:35→16:28)
[2021-11-20] MEDS: DULOXETINE HCL 30 MG DELAYED RELEASE PO SCH ×2 (07:35→16:28)
[2021-11-20] MEDS: SULFASALAZINE 500 MG TAB PO SCH ×2 (07:35→16:29)
[2021-11-20] MEDS: BELBUCA PO SCH ×2 (07:36→16:28)
[2021-11-20] MEDS: HYDROXYCHLOROQUINE SULFATE 200 MG TAB PO SCH ×2 (07:36→16:29)
[2021-11-20] MEDS ORDERED: IRON DEXTRAN INJ 50 MG in SODIUM CHLORIDE 0.9% 100 ML 100 ML IV ONE (14:45)
[2021-11-20] MEDS ORDERED: SODIUM CHLORIDE 0.9% 250ML 250 ML ONE (15:07)
[2021-11-21] MEDS ORDERED: LEVOTHYROXINE SODIUM 75 MCG TAB PO SCH ×2 (06:00)
[2021-11-21] MEDS ORDERED: LEVOTHYROXINE SODIUM 100 MCG TAB PO SCH (06:00)
== END 2021-11-20 17:08 | disposition left against medical advice (07) | DRG 812 ==
LOC: FSED 23:32 → ERHOLD 11-19 01:56 → MED/SURG3 11-19 04:07
PROC: 30233N1 Transfusion of Nonautologous Red Blood Cells into Peripheral Vein, Percutaneous Approach (ICD-10-PCS; principal; 2021-11-19)
DX: D50.9 Iron deficiency anemia, unspecified (principal); D89.89 Other specified disorders involving the immune mechanism, not elsewhere classified; M06.9 Rheumatoid arthritis, unspecified; M32.9 Systemic lupus erythematosus, unspecified; E03.9 Hypothyroidism, unspecified; M79.7 Fibromyalgia; K21.9 Gastro-esophageal reflux disease without esophagitis; Z87.442 Personal history of urinary calculi; Z87.11 Personal history of peptic ulcer disease; Z20.822 Contact with and (suspected) exposure to COVID-19
CPT/HCPCS: 36415; 80053; 81003; 81025; 82607; 82728; 83540; 84436; 84443; 84466; 84479; 85025; 85045; 86850; 86900; 86920; 96374; 96375; 99284; J1750; J1885; J2270; J2405; J7050; P9016